=== PATIENT | male | born 1970 | race Caucasian/White ===

== ENCOUNTER 2017-02-12 10:54 | Emergency (ER) | payer MEDICAID ==
--- NOTE | 2017-02-12 11:46 | ED Physician Documentation ---
History of Present Illness - Stated complaint Stated Complaint: FOOT PX - Chief complaint Chief Complaint: General - History obtained from History obtained from: Patient - History of Present Illness Timing: How many days ago (4) - Additonal information Additional information: 47-year-old male with a history of renal cell carcinoma and gout has developed swelling and pain in his left foot. He has severe exquisite pain consistent with the gout as well as some swelling. He last had an episode of gout about a year ago and it was much less painful than this. He has previously been on indomethacin and this medication helped. Review of Systems Constitutional: denies: Fever Respiratory: denies: Cough GI: denies: Vomiting Skin: denies: Rash Musculoskeletal: reports: Extremity pain, Joint pain, Joint swelling, Pain with weight bearing. denies: Neck pain, Back pain Neurologic: denies: Generalized weakness, Focal weakness, Numbness PD PAST MEDICAL HISTORY - Past Medical History Past Medical History: Yes Cardiovascular: None Respiratory: None Endocrine/Autoimmune: None GI: None : Other HEENT: None Psych: Anxiety, Bipolar disorder Musculoskeletal: None Derm: None Other Past Medical History: Pt has hx of kidney CA - Past Surgical History Past Surgical History: Yes HEENT: Tonsil/Adenoidectomy - Present Medications Home Medications: Ambulatory Orders Medication Instructions Recorded Confirmed HYDROcod/ACETAM 5/325 [[place]verse 5/325] 1 - 2 ea PO Q6H PRN #15 tablet 02/12/17 Indomethacin 25 - 50 mg PO Q6HR PRN #20 capsule 02/12/17 - Allergies Allergies/Adverse Reactions: Allergies Allergy/AdvReac Type Severity Reaction Status Date / Time amoxicillin Allergy Rash Verified 02/12/17 11:07 Penicillins Allergy Rash Verified 02/12/17 11:07 sulfamethoxazole Allergy Edema Verified 02/12/17 11:07 [From Bactrim] trimethoprim [From Bactrim] Allergy Edema Verified 02/12/17 11:07 - Social History Does the pt smoke?: Yes Smoking Status: Current every day smoker Does the pt drink ETOH?: No Does the pt have substance abuse?: No - POLST Patient has POLST: No PD ED PE NORMAL - Vitals Vital signs reviewed: Yes (Hypertension) - General General: No acute distress, Well developed/nourished - HEENT HEENT: Atraumatic, PERRL, EOMI - Respiratory Respiratory: No respiratory distress - Derm Derm: Normal color, Warm and dry, No rash - Extremities Extremities: No deformity, Other (There is swelling to the ankle joint with exquisite tenderness. There is no overlying erythema there is pain to flexion extension of the great toe without swelling of the great toe. There is a palpable effusion to the ankle.) - Neuro Neuro: Alert and oriented X 3, No motor deficit, No sensory deficit, Normal speech - Psych Psych: Normal mood, Normal affect Results - Vitals Vitals: Vital Signs - 24 hr 02/12/17 11:01 Temperature 37.0 C Heart Rate 89 Respiratory 17 Rate Blood Pressure 142/95 H O2 Saturation 100 Oxygen O2 Source Room air PD MEDICAL DECISION MAKING - ED course Complexity details: considered differential, d/w patient ED course: 47-year-old male new to our facility with a history of gout presents with typical symptoms of gout. He has had symptoms for about 4 days and he was unable to sleep last night. He has swelling in the foot without erythema and exquisite tenderness. Here in the emergency department he is treated with dexamethasone 10 mg orally and Toradol [address] will place him on some indomethacin and Vicodin. Departure - Departure Disposition: Home, Self Care Clinical Impression: Gout attack Qualifiers: Gout site: ankle Gout etiology: unspecified cause Laterality: left Qualified Code(s): M10.9 - Gout, unspecified Condition: Stable Instructions: ED Arthritis Gout Follow-Up: [facility] [Provider Group] Prescriptions: Indomethacin 25 - 50 mg PO Q6HR PRN #20 capsule PRN Reason: Pain HYDROcod/ACETAM 5/325 [Converse 5/325] 1 - 2 ea PO Q6H PRN #15 tablet PRN Reason: Pain Comments: Today in the Emergency Department your blood pressure was elevated. This can happen from the stress of the visit itself, from a current illness or circumstance or from uncontrolled hypertension. If you take blood pressure medications take your usual mediations, have your blood pressure re-checked in an appropriate setting and follow up any elevation with your primary care doctor.
[2017-02-12] MEDS ORDERED: KETOROLAC 60 MG/2 ML VIAL ONE (11:54)
[2017-02-12] MEDS ORDERED: DEXAMETHASONE 10 MG/ML VIAL ONE (11:54)
[2017-02-12] MEDS: KETOROLAC 60 MG/2 ML VIAL IM STA (11:56)
[2017-02-12] MEDS: DEXAMETHASONE 10 MG/ML VIAL PO STA (11:56)
[2017-02-12 12:12] VITALS: BP 138/88
== END 2017-02-12 12:10 | disposition home or self-care (01) ==
LOC: ED 10:54
DX: M10.9 Gout, unspecified (principal); R03.0 Elevated blood-pressure reading, without diagnosis of hypertension; F17.200 Nicotine dependence, unspecified, uncomplicated; Z85.53 Personal history of malignant neoplasm of renal pelvis
CPT/HCPCS: 96372; 99283

== ENCOUNTER 2017-03-03 18:36 | Emergency (ER) | payer MEDICAID ==
[2017-03-03 19:02] LABS: BASOPHILS # (AUTO) 0.2 10^3/uL (0.0-0.1); EOSINOPHILS # (AUTO) 0.4 10^3/uL (0.0-0.7); EOSINOPHILS % (AUTO) 2.7 %; HCT - HEMATOCRIT 39.4 % (42.0-52.0); HGB - HEMOGLOBIN 13.7 g/dL (14.0-18.0); LYMPHOCYTES # (AUTO) 4.3 10^3/uL (1.5-3.5); MEAN CORPUSCULAR HEMOGLOBIN 32.5 pg (27.0-31.0); MEAN CORPUSCULAR HGB CONC 34.7 g/dL (32.0-36.0); MEAN CORPUSCULAR VOLUME 93.5 fL (80.0-94.0); MEAN PLATELET VOLUME 8.7 fL (7.4-11.4); MONOCYTES # (AUTO) 1.2 10^3/uL (0.0-1.0); MONOCYTES % (AUTO) 7.5 %; NEUTROPHILS # (AUTO) 10.3 10^3/uL (1.5-6.6); NEUTROPHILS % (AUTO) 62.8 %; RED BLOOD COUNT 4.21 10^6/uL (4.70-6.10); RED CELL DISTRIBUTION WIDTH 12.9 % (12.0-15.0); UNCORRECTED WHITE BLOOD COUNT 16.4 x10^3/uL; WHITE BLOOD COUNT 16.4 x10^3/uL (4.8-10.8)
[2017-03-03 19:11] LABS: BILIRUBIN,URINE NEGATIVE (NEGATIVE)
[2017-03-03 19:12] LABS: UA CHARGE (STRIP ONLY) YES; UR CULTURE IF IND NOT INDICATED
[2017-03-03 19:14] LABS: ALBUMIN/GLOBULIN RATIO 1.5 (1.0-2.2); BILIRUBIN,TOTAL 0.5 mg/dL (0.2-1.0); CREATININE 1.1 mg/dL (0.6-1.2); POTASSIUM 3.9 mmol/L (3.5-5.0); TOTAL PROTEIN 6.9 g/dL (6.7-8.2)
--- NOTE | 2017-03-03 19:44 | ED Physician Documentation ---
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) Similar symptoms before: Diagnosis (had renal cell carcinoma in the past.) Recently seen: Not recently seen - Additional information Additional information: recently moved here from [place] Review of Systems Ten Systems: 10 systems reviewed and negative Constitutional: denies: Fever, Chills Ears: denies: Ear pain Nose: denies: Rhinorrhea / runny nose, Congestion Cardiac: denies: Chest pain / pressure Respiratory: denies: Cough GI: denies: Nausea, Vomiting, Diarrhea : denies: Dysuria, Frequency, Hesitancy, Incontinent, Hematuria, Discharge, Testicular pain, Testicular mass Skin: denies: Rash Musculoskeletal: denies: Neck pain, Back pain PD PAST MEDICAL HISTORY - Past Medical History Past Medical History: Yes Cardiovascular: None Respiratory: None Endocrine/Autoimmune: None GI: None : Other HEENT: None Psych: Anxiety, Bipolar disorder Musculoskeletal: None, Gout Derm: None Other Past Medical History: renal cancer - Past Surgical History Past Surgical History: Yes HEENT: Tonsil/Adenoidectomy - Present Medications Home Medications: Ambulatory Orders Medication Instructions Recorded Confirmed Hydrocodone/Acetaminophen 1 - 2 each PO Q6H PRN #14 tablet 03/03/17 [Hydrocodon-Acetaminophen 5-325] Ibuprofen [Motrin] 800 mg PO Q8H PRN #30 tablet 03/03/17 - Allergies Allergies/Adverse Reactions: Allergies Allergy/AdvReac Type Severity Reaction Status Date / Time amoxicillin Allergy Rash Verified 03/03/17 19:15 Penicillins Allergy Rash Verified 03/03/17 19:15 sulfamethoxazole Allergy Edema Verified 03/03/17 19:15 [From Bactrim] trimethoprim [From Bactrim] Allergy Edema Verified 03/03/17 19:15 - Social History Does the pt smoke?: Yes Smoking Status: Current every day smoker Does the pt drink ETOH?: No Does the pt have substance abuse?: No - Immunizations Immunizations are current?: Yes - POLST Patient has POLST: No PD ED PE NORMAL - Vitals Vital signs reviewed: Yes - General General: Alert and oriented X 3, No acute distress, Well developed/nourished - HEENT HEENT: PERRL - Neck Neck: Supple, no meningeal sign - Cardiac Cardiac: RRR, Strong equal pulses - Respiratory Respiratory: No respiratory distress, Clear bilaterally - Abdomen Abdomen: Soft, Non tender, Non distended - Back Back: No spinal TTP, Other (TTP R low flank. 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, No motor deficit, No sensory deficit - Psych Psych: Normal mood, Normal affect Results - Vitals Vitals: Vital Signs - 24 hr 03/03/17 03/03/17 03/03/17 18:38 21:00 21:23 Temperature 36.2 C L Heart Rate 107 H 86 71 Respiratory 18 16 16 Rate Blood Pressure 123/76 117/77 128/86 H O2 Saturation 98 98 97 Oxygen O2 Source Room air - Labs Labs: Laboratory Tests 03/03/17 03/03/17 03/03/17 18:50 18:50 18:50 WBC 16.4 H RBC 4.21 L Hgb 13.7 L Hct 39.4 L MCV 93.5 MCH 32.5 H MCHC 34.7 RDW 12.9 Plt Count 228 MPV 8.7 Neut # 10.3 H Lymph # 4.3 H [place] # 1.2 H Eos # 0.4 Baso # 0.2 H Absolute Nucleated RBC 0.00 Nucleated RBCs 0.0 Sodium 137 Potassium 3.9 Chloride 102 Carbon Dioxide 28 Anion Gap 7.0 BUN 20 Creatinine 1.1 Estimated GFR (MDRD) 72 L Glucose 109 H Calcium 9.0 Total Bilirubin 0.5 AST 19 ALT 19 Alkaline Phosphatase 62 Total Protein 6.9 Albumin 4.1 Globulin 2.8 Albumin/Globulin Ratio 1.5 Lipase 25 Urine Color YELLOW Urine Clarity CLEAR Urine pH 6.0 Ur Specific [place] 1.025 Urine Protein NEGATIVE Urine Glucose (UA) NEGATIVE Urine Ketones NEGATIVE Urine Occult Blood NEGATIVE Urine Nitrite NEGATIVE Urine Bilirubin NEGATIVE Urine Urobilinogen 0.2 (NORMAL) Ur Leukocyte Esterase NEGATIVE Ur Microscopic Review NOT INDICATED Urine Culture Comments NOT INDICATED - Rads (name of study) CT abdomen pelvis Radiology: Prelim report reviewed, EMP read contemporaneously, See rad report ( No acute abnormalities) PD MEDICAL DECISION MAKING - ED course Complexity details: reviewed results, re-evaluated patient, considered differential (no cauda equina, no spinal epidural abscess, no fracture, no aortic dissection or evidence of aneursym rupture), d/w patient ED course: Patient is a 47-year-old gentleman who presents to the emergency department with right low back pain, does have a history of renal cell carcinoma on the left and was concerned about possible recurrence of the cancer versus kidney stone. Imaging is negative. Does have a leukocytosis on CBC, but patient states that this is normal for him and within his normal range. Patient is very well-appearing, nontoxic. Afebrile. Pain greatly improved in the emergency department with pain medication. Ambulating well. Will prescribe a small amount of pain medication for home and follow-up with his doctor. Patient counseled regarding signs and symptoms for which I believe and urgent re -evaluation would be necessary. Patient with good understanding of and agreement to plan and is comfortable going home at this time This document was made in part using voice recognition software. While efforts are made to proofread this document, sound alike and grammatical errors may occur. Departure - Departure Disposition: 01 Home, Self Care Clinical Impression: Back pain Qualifiers: Back pain location: low back pain Chronicity: acute Back pain laterality: right Sciatica presence: without sciatica Qualified Code(s): M54.5 - Low back pain Condition: Good Instructions: ED Acute Pain UKO, ED Neck Back Pain General Follow-Up: [facility] [Provider Group] [facility] [Provider Group] Prescriptions: Hydrocodone/Acetaminophen [Hydrocodon-Acetaminophen 5-325] 1 - 2 each PO Q6H PRN #14 tablet PRN Reason: pain Ibuprofen [Motrin] 800 mg PO Q8H PRN #30 tablet PRN Reason: PAIN &/OR FEVER Comments: Your labs and CT scan are normal tonight other than her elevated white blood cell count, which is chronic for you. Return if you worsen. This should improve over the next few days. Discharge Date/Time: 03/03/17 21:25
[2017-03-03] MEDS ORDERED: IOPAMIDOL-300 100 ML VIAL IVP ONE (20:33)
--- NOTE | 2017-03-03 20:43 | CT Preliminary Report ---
Exam: CT Abdomen/Pelvis W/ IMPRESSION: 1. Negative examination. No acute CT finding to explain the clinical symptoms. [facility] SITE ID: [id number]
[2017-03-03] MEDS ORDERED: HYDROmorphone 1 MG/ML SYRINGE IVP STA (20:45)
--- NOTE | 2017-03-03 20:46 | CT Report ---
EXAM: CT ABDOMEN AND PELVIS EXAM DATE: 03/03/2017 08:33 PM. CLINICAL HISTORY: R low back/flank pain. COMPARISONS: None. TECHNIQUE: Routine helical CT imaging was performed through the abdomen and pelvis. IV contrast: 100 cc Isovue-300 IV. Enteric contrast: No. Reconstructions: Coronal and sagittal. In accordance with CT protocol optimization, one or more of the following dose reduction techniques w ere utilized for this exam: automated exposure control, adjustment of mA and/or KV based on patient s ize, or use of iterative reconstructive technique. FINDINGS: Lung Bases: Unremarkable. Liver: Normal. No masses. Gallbladder/Bile Ducts: The gallbladder is contracted. Spleen: Normal. Pancreas: Normal. Adrenal Glands: Normal. Kidneys: There is a cyst in the left kidney. Kidneys otherwise unremarkable. No kidney stone or hydro nephrosis. Peritoneal Cavity/Bowel: Normal. No free fluid, free air or adenopathy. No masses or acute inflammato ry process. The appendix is well visualized and normal. Pelvic Organs: Normal. The bladder and visualized pelvic organs are within normal limits. Vasculature: No aneurysms or other significant abnormality. Bones: No significant abnormality. Other: None. IMPRESSION: 1. Negative examination. No acute CT finding to explain the clinical symptoms. [facility] Referring Provider Line: [phone] SITE ID: [id number]
[2017-03-03] MEDS ORDERED: HYDROmorphone 1 MG/ML SYRINGE ONE (20:56)
[2017-03-03 21:25] VITALS: BP 128/86
== END 2017-03-03 21:25 | disposition home or self-care (01) ==
LOC: ED 18:36
DX: M54.5 Low back pain (principal); D72.829 Elevated white blood cell count, unspecified; Z85.528 Personal history of other malignant neoplasm of kidney; F17.200 Nicotine dependence, unspecified, uncomplicated
CPT/HCPCS: 36415; 74177; 80053; 81003; 83690; 85025; 96374; 99283; 99284; J1170; Q9967; 81001; 87086

== ENCOUNTER 2017-03-24 15:50 | Outpatient (CLI) | payer MEDICAID | END 2017-03-24 15:51 | disposition critical access hospital (66) | LOC: EMS 15:50 | PROVIDERS: ATTEND Surgery | DX: M54.5 Low back pain (principal); V03.10XA Pedestrian on foot injured in collision with car, pick-up truck or van in traffic accident, initial encounter; Y92.414 Local residential or business street as the place of occurrence of the external cause | CPT/HCPCS: A0425; A0429 ==

== ENCOUNTER 2017-03-24 16:11 | Emergency (ER) | payer MEDICAID ==
[2017-03-24] MEDS ORDERED: KETOROLAC 60 MG/2 ML VIAL IVP STA (17:40)
--- NOTE | 2017-03-24 17:40 | XRAY Preliminary Report ---
Exam: XR Lumbar Spine 2 View IMPRESSION: No lumbar spine fracture or malalignment. Mild L3-L4 disk and L5-S1 facet joint related t o degenerative changes. [facility] SITE ID: [id number]
--- NOTE | 2017-03-24 17:41 | XRAY Preliminary Report ---
Exam: XR Knee 4 View RT IMPRESSION: Normal knee radiography. [facility] SITE ID: [id number]
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
[2017-03-24] MEDS ORDERED: KETOROLAC 60 MG/2 ML VIAL ONE (17:50)
[2017-03-24] MEDS ORDERED: SODIUM CHLORIDE FLUSH 0.9% 10 ML SYRINGE IVP ONE ×2 (17:53→18:39)
[2017-03-24] MEDS ORDERED: IOPAMIDOL-300 100 ML VIAL ONE (17:56)
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
[2017-03-24] MEDS ORDERED: HYDROmorphone 1 MG/ML CARPUJECT IVP STA (18:26)
[2017-03-24] MEDS ORDERED: IOPAMIDOL-300 100 ML VIAL IVP ONE (18:29)
[2017-03-24] MEDS ORDERED: HYDROmorphone 1 MG/ML CARPUJECT ONE (18:39)
--- NOTE | 2017-03-24 18:57 | CT Preliminary Report ---
Exam: CT Chest W/ IMPRESSION: No evidence of acute traumatic injury to the chest. [facility] SITE ID: [id number]
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
--- NOTE | 2017-03-24 19:01 | CT Preliminary Report ---
Exam: CT Abdomen/Pelvis W/ IMPRESSION: No evidence of acute traumatic injury to the abdomen or pelvis. [facility] SITE ID: [id number]
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
[2017-03-24 19:46] VITALS: BP 149/82
== END 2017-03-24 20:05 | disposition home or self-care (01) ==
LOC: EDUNIT# → ED 16:11
DX: S80.211A Abrasion, right knee, initial encounter (principal); S39.012A Strain of muscle, fascia and tendon of lower back, initial encounter; S20.20XA Contusion of thorax, unspecified, initial encounter; V03.10XA Pedestrian on foot injured in collision with car, pick-up truck or van in traffic accident, initial encounter; F17.200 Nicotine dependence, unspecified, uncomplicated
CPT/HCPCS: 71260; 72100; 73564; 74177; 96374; 96375; 99283; 99284; J1170; Q9967

== ENCOUNTER 2017-03-30 14:16 | Outpatient (CLI) | payer MEDICAID | END 2017-03-30 14:17 | disposition critical access hospital (66) | LOC: EMS 14:16 | PROVIDERS: ATTEND Surgery | DX: R60.0 Localized edema (principal) | CPT/HCPCS: A0425; A0429 ==

== ENCOUNTER 2017-03-30 14:39 | Emergency (ER) | payer MEDICAID ==
--- NOTE | 2017-03-30 14:48 | ED Physician Documentation ---
PD HPI HEENT - Stated complaint Stated Complaint: FACE SWELLING - Chief complaint Chief Complaint: Heent - History obtained from History obtained from: Patient, EMS - History of Present Illness Timing - onset: How many days ago (3) Timing - duration: Days (3) Timing - details: Abrupt onset, Still present Location: Nose (left nostril lump and tenderness that has gotten bigger and today with facial swelling left side of nose and lower left eyelid.) Worsens: Other (palpating). No: Swalllowing Associated symptoms: Fever (subjective today), Facial swelling. No: Congestion , Rhinorrhea, Swollen nodes, Headache, Cough Similar symptoms before: Has not had sx before Review of Systems Constitutional: reports: Fever. denies: Chills, Myalgias Nose: reports: Other (nostril swelling/left side nose.). denies: Rhinorrhea / runny nose, Congestion, Epistaxis, Sinus pressure / pain Throat: denies: Sore throat Respiratory: denies: Cough GI: denies: Nausea, Vomiting, Diarrhea Neurologic: denies: Focal weakness, Numbness PD PAST MEDICAL HISTORY - Past Medical History Cardiovascular: None Respiratory: None Endocrine/Autoimmune: None GI: None : Other HEENT: None Psych: Anxiety, Bipolar disorder Musculoskeletal: None, Gout Derm: None - Past Surgical History Past Surgical History: Yes HEENT: Tonsil/Adenoidectomy - Present Medications Home Medications: Ambulatory Orders Medication Instructions Recorded Confirmed Tramadol HCl 50 mg PO Q6H PRN #20 tablet 03/24/17 03/30/17 Cephalexin [Keflex] 500 mg PO TID #21 capsule 03/30/17 Doxycycline Monohydrate 100 mg PO BID #14 tablet 03/30/17 Mupirocin 1 applic TP TID #15 oint...g. 03/30/17 Oxycodone HCl/Acetaminophen 1 each PO Q6H PRN #20 tablet 03/30/17 [Percocet 5-325 mg Tablet] - Allergies Allergies/Adverse Reactions: Allergies Allergy/AdvReac Type Severity Reaction Status Date / Time amoxicillin Allergy Rash Verified 03/30/17 14:46 Penicillins Allergy Rash Verified 03/30/17 14:46 sulfamethoxazole Allergy Edema Verified 03/30/17 14:46 [From Bactrim] trimethoprim [From Bactrim] Allergy Edema Verified 03/30/17 14:46 - Social History Does the pt smoke?: Yes Smoking Status: Current every day smoker Does the pt drink ETOH?: No Does the pt have substance abuse?: No - Immunizations Immunizations are current?: Yes - POLST Patient has POLST: No PD ED PE NORMAL - Vitals Vital signs reviewed: Yes - General General: Alert and oriented X 3, No acute distress, Well developed/nourished - HEENT HEENT: Ears normal, Pharynx benign, Other (left side of nose with redness and swelling, firm area noted of tissue. Left side of nose and left lower eyelid with soft swelling without induration nor fluctuance. ) - Neck Neck: Supple, no meningeal sign, No adenopathy - Cardiac Cardiac: RRR, No murmur - Respiratory Respiratory: Clear bilaterally - Derm Derm: Normal color, Warm and dry - Neuro Neuro: Alert and oriented X 3, conference organizer 2-12 intact, No motor deficit, No sensory deficit, Normal speech Results - Vitals Vitals: Vital Signs - 24 hr 03/30/17 03/30/17 14:42 16:12 Temperature 36.3 C L 36.5 C Heart Rate 79 63 Respiratory 15 18 Rate Blood Pressure 172/109 H 156/86 H O2 Saturation 100 100 Oxygen O2 Source Room air - Labs Labs: Microbiology 03/30/17 15:30 MRSA (PCR) - Final Nasal Laboratory Tests 03/30/17 03/30/17 03/30/17 15:20 15:20 15:20 WBC 12.8 H RBC 4.68 L Hgb 15.1 Hct 43.8 MCV 93.6 MCH 32.3 H MCHC 34.5 RDW 13.4 Plt Count 210 MPV 9.3 Neut # 8.9 H Lymph # 2.6 [place] # 0.8 Eos # 0.4 Baso # 0.1 Absolute Nucleated RBC 0.00 Nucleated RBC % 0.0 Sodium 139 Potassium 4.4 Chloride 103 Carbon Dioxide 26 Anion Gap 10.0 BUN 10 Creatinine 1.0 Estimated GFR (MDRD) 80 L Glucose 107 H Lactic Acid 1.8 Calcium 9.2 Total Bilirubin 0.3 AST 20 ALT 11 Alkaline Phosphatase 71 Total Protein 7.2 Albumin 4.1 Globulin 3.1 Albumin/Globulin Ratio 1.3 Lipase 30 - Rads (name of study) facial CT Radiology: Prelim report reviewed (small fluid collection 7x10 mm left nostril. Soft tissue swelling left face. Sinuses and bones okay. No orbital fluid/ swelling. ) PD MEDICAL DECISION MAKING - ED course Complexity details: reviewed results, considered differential (nose infection vs abscess and the CT showed 1 cm area of abscess. I did needle it with 18G needle intranasally and got some pus to drain along with some brief bleeding. He does not look septic. The CT showed nose and facial infection, without deeper structures/sinus extension. ), d/w patient Departure - Departure Disposition: 01 Home, Self Care Clinical Impression: Abscess of nose, Facial cellulitis Condition: Stable Record reviewed to determine appropriate education?: Yes Instructions: ED Abscess IandD Prescriptions: Cephalexin [Keflex] 500 mg PO TID #21 capsule Doxycycline Monohydrate 100 mg PO BID #14 tablet Mupirocin 1 applic TP TID #15 oint...g. Oxycodone HCl/Acetaminophen [Percocet 5-325 mg Tablet] 1 each PO Q6H PRN #20 tablet PRN Reason: Pain Comments: Using mupirocin antibiotic ointment in the nostrils 3 or 4 times a day. Afrin nasal spray can be used to decrease the swelling in the nasal passage. For the infection use doxycycline and cephalexin for a week as directed. Tylenol or ibuprofen if needed for pains and add oxycodone if needed for worse pain. Recheck if not improved in the next 2-3 days either primary care or here in the ER. Return sooner if worsening. Discharge Date/Time: 03/30/17 17:52
[2017-03-30] MEDS ORDERED: oxyCOD/ACETAMIN 5 MG/325 MG TABLET PO STA (14:58)
[2017-03-30] MEDS ORDERED: DOXYCYCLINE 100 MG TABLET PO STA ×2 (14:59→17:39)
[2017-03-30] MEDS ORDERED: KETOROLAC 60 MG/2 ML VIAL IVP STA (15:02)
[2017-03-30] MEDS ORDERED: IOPAMIDOL-300 100 ML VIAL ONE (15:08)
[2017-03-30] MEDS ORDERED: DOXYCYCLINE 100 MG TABLET PO ONE (15:08)
[2017-03-30] MEDS ORDERED: IOPAMIDOL-300 100 ML VIAL IVP ONE ×2 (15:08→16:04)
[2017-03-30] MEDS ORDERED: oxyCOD/ACETAMIN 5 MG/325 MG TABLET PO ONE (15:08)
[2017-03-30] MEDS ORDERED: SODIUM CHLORIDE FLUSH 0.9% 10 ML SYRINGE IVP ONE ×2 (15:09→16:14)
[2017-03-30 15:24] LABS: BASOPHILS # (AUTO) 0.1 10^3/uL (0.0-0.1); BASOPHILS % (AUTO) 0.7 %; EOSINOPHILS # (AUTO) 0.4 10^3/uL (0.0-0.7); EOSINOPHILS % (AUTO) 2.9 %; HCT - HEMATOCRIT 43.8 % (42.0-52.0); HGB - HEMOGLOBIN 15.1 g/dL (14.0-18.0); LYMPHOCYTES # (AUTO) 2.6 10^3/uL (1.5-3.5); LYMPHOCYTES % (AUTO) 20.5 %; MEAN CORPUSCULAR HEMOGLOBIN 32.3 pg (27.0-31.0); MEAN CORPUSCULAR HGB CONC 34.5 g/dL (32.0-36.0); MEAN CORPUSCULAR VOLUME 93.6 fL (80.0-94.0); MEAN PLATELET VOLUME 9.3 fL (7.4-11.4); MONOCYTES # (AUTO) 0.8 10^3/uL (0.0-1.0); MONOCYTES % (AUTO) 6.4 %; NEUTROPHILS # (AUTO) 8.9 10^3/uL (1.5-6.6); NEUTROPHILS % (AUTO) 69.5 %; RED BLOOD COUNT 4.68 10^6/uL (4.70-6.10); RED CELL DISTRIBUTION WIDTH 13.4 % (12.0-15.0); UNCORRECTED WHITE BLOOD COUNT 12.8 x10^3/uL; WHITE BLOOD COUNT 12.8 x10^3/uL (4.8-10.8)
[2017-03-30] MEDS ORDERED: KETOROLAC 30 MG/ML VIAL ONE (15:27)
[2017-03-30 15:46] LABS: ALBUMIN/GLOBULIN RATIO 1.3 (1.0-2.2); BILIRUBIN,TOTAL 0.3 mg/dL (0.2-1.0); CALCIUM 9.2 mg/dL (8.5-10.3); POTASSIUM 4.4 mmol/L (3.5-5.0); TOTAL PROTEIN 7.2 g/dL (6.7-8.2)
[2017-03-30] MEDS ORDERED: HYDROmorphone 1 MG/ML CARPUJECT IVP STA (16:07)
[2017-03-30 16:12] VITALS: BP 156/86
[2017-03-30] MEDS ORDERED: HYDROmorphone 1 MG/ML SYRINGE ONE (16:14)
--- NOTE | 2017-03-30 16:39 | CT Preliminary Report ---
Exam: CT Facial Bones W/ IMPRESSION: 1. There is a rim-enhancing fluid collection seen along the anterior left nose measuring 7 x 7 x 10 m m (CC by TRV by AP). There is moderate surrounding inflammatory stranding seen extending superiorly a long the nasal bridge and inferiorly to the left nasolabial fold. 2. Extensive dental disease as detailed above. [facility] SITE ID: [id number]
--- NOTE | 2017-03-30 16:42 | CT Report ---
EXAM: CT MAXILLOFACIAL WITH CONTRAST EXAM DATE: 03/30/2017 04:10 PM. CLINICAL HISTORY: Left nasal swelling COMPARISONS: None. TECHNIQUE: Thin-section axial images were acquired of the face after administration of intravenous co ntrast. IV contrast: Iodinated. Post-processing: Coronal and sagittal reformats. Other: None. In accordance with CT protocol optimization, one or more of the following dose reduction techniques w ere utilized for this exam: automated exposure control, adjustment of mA and/or KV based on patient s ize, or use of iterative reconstructive technique. FINDINGS: Nose: There is a rim-enhancing fluid collection seen along the anterior left nose measuring 7 x 7 x 1 0 mm (CC by TRV by AP). There is moderate overlying soft tissue thickening and stranding seen along t he nose extending superiorly to the nasal bridge and extending inferiorly to the nasolabial fold. No additional rim-enhancing fluid collection seen. There is rightward deviation of bony nasal septum. No definite nasal polyps or masses seen. A moderat e-sized left fredy bullosa is seen. Dental: Numerous dental caries are seen. Numerous periapical lucencies with cortical breakthrough are seen. No definite overlying soft tissue thickening rim-enhancing fluid collection seen overlying the cortical breakthrough. There is amorphous hyperdensity seen within the left posterior maxillary ridg e that may represent prior to procedure. Bones: No fracture or bone lesion. Temporomandibular Joints: The temporomandibular joints are symmetric and normally located. Sinuses: Small bilateral maxillary mucosal retention cysts versus polyps. Mild mucosal thickening in the ethmoid air cells. Mastoid air cells and middle ear cavities are clear. Orbits: The orbits appear normal. Glands: The parotid and submandibular glands are unremarkable. Pharynx: Normal. Other: The visualized vasculature appears normal.. IMPRESSION: 1. There is a rim-enhancing fluid collection seen along the anterior left nose measuring 7 x 7 x 10 m m (CC by TRV by AP). There is moderate surrounding inflammatory stranding seen extending superiorly a long the nasal bridge and inferiorly to the left nasolabial fold. 2. Extensive dental disease as detailed above. [facility] Referring Provider Line: [phone] SITE ID: [id number]
[2017-03-30] MEDS ORDERED: OXYMETAZOLINE NASAL SPRAY NAS STA (17:37)
[2017-03-30] MEDS ORDERED: oxyCODONE/ACET 5/325 Prepack 4 PO STA (17:38)
[2017-03-30] MEDS ORDERED: cephALEXin 250 MG CAPSULE PO STA (17:40)
[2017-03-30] MEDS ORDERED: OXYMETAZOLINE NASAL SPRAY NAS ONE (17:51)
[2017-03-30] MEDS ORDERED: oxyCODONE/ACET 5/325 Prepack 4 PO ONE (17:51)
[2017-03-30] MEDS ORDERED: cephALEXin 250 MG CAPSULE PO ONE (17:51)
== END 2017-03-30 17:52 | disposition home or self-care (01) ==
LOC: EDUNIT# → ED 14:39
DX: J34.0 Abscess, furuncle and carbuncle of nose (principal); L03.211 Cellulitis of face; F17.200 Nicotine dependence, unspecified, uncomplicated
CPT/HCPCS: 10160; 36415; 70487; 80053; 83605; 83690; 85025; 87640; 96374; 96375; 99283; 99284; A9270; J1170; Q9967; 87081

== ENCOUNTER 2017-04-01 17:40 | Outpatient (CLI) | payer MEDICAID | END 2017-04-01 17:41 | disposition critical access hospital (66) | LOC: EMS 17:40 | PROVIDERS: ATTEND Surgery | DX: R11.2 Nausea with vomiting, unspecified (principal) | CPT/HCPCS: A0425; A0427 ==

== ENCOUNTER 2017-04-01 18:03 | Inpatient (IN) | payer MEDICAID ==
[2017-04-01] MEDS ORDERED: HYDROmorphone 1 MG/ML CARPUJECT IVP STA ×3 (18:55→20:55)
[2017-04-01] MEDS ORDERED: SODIUM CHLORIDE 0.9% 1,000 ML IV ONE (18:55)
--- NOTE | 2017-04-01 18:57 | ED Physician Documentation ---
History of Present Illness - Stated complaint Stated Complaint: N/V - Chief complaint Chief Complaint: General - History obtained from History obtained from: Patient - History of Present Illness Timing: Other (He was seen here couple of days ago with a nasal abscess, placed on doxycycline and a MRSA PCR done was positive. He has worsened with more facial swelling and some subjective fevers today.) Review of Systems Ten Systems: 10 systems reviewed and negative Constitutional: reports: Fever, Chills, Myalgias, Fatigue Nose: denies: Rhinorrhea / runny nose, Congestion Throat: denies: Sore throat Cardiac: denies: Chest pain / pressure, Palpitations Respiratory: denies: Dyspnea PD PAST MEDICAL HISTORY - Past Medical History Cardiovascular: None Respiratory: None Endocrine/Autoimmune: None GI: None : Other HEENT: None Psych: Anxiety, Bipolar disorder Musculoskeletal: None, Gout Derm: None - Past Surgical History Past Surgical History: Yes HEENT: Tonsil/Adenoidectomy - Present Medications Home Medications: Ambulatory Orders Medication Instructions Recorded Confirmed Tramadol HCl 50 mg PO Q6H PRN #20 tablet 03/24/17 03/30/17 Cephalexin [Keflex] 500 mg PO TID #21 capsule 03/30/17 Doxycycline Monohydrate 100 mg PO BID #14 tablet 03/30/17 Mupirocin 1 applic TP TID #15 oint...g. 03/30/17 Oxycodone HCl/Acetaminophen 1 each PO Q6H PRN #20 tablet 03/30/17 [Percocet 5-325 mg Tablet] - Allergies Allergies/Adverse Reactions: Allergies Allergy/AdvReac Type Severity Reaction Status Date / Time amoxicillin Allergy Rash Verified 03/30/17 14:46 Penicillins Allergy Rash Verified 03/30/17 14:46 sulfamethoxazole Allergy Edema Verified 03/30/17 14:46 [From Bactrim] trimethoprim [From Bactrim] Allergy Edema Verified 03/30/17 14:46 - Social History Does the pt smoke?: Yes Smoking Status: Current every day smoker Does the pt drink ETOH?: No Does the pt have substance abuse?: No - Family History Family history: reports: Non contributory - Immunizations Immunizations are current?: Yes - POLST Patient has POLST: No PD ED PE NORMAL - Vitals Vital signs reviewed: Yes (Afebrile) - General General: Alert and oriented X 3, No acute distress - HEENT HEENT: Other (Inside the left nares on the lateral side there is a large pointed abscess with overlying cellulitis and swelling of that side of the nose extending a little bit into the lower eyelid and cheek.) - Neck Neck: Supple, no meningeal sign, No bony TTP - Cardiac Cardiac: RRR, No murmur - Respiratory Respiratory: No respiratory distress, Clear bilaterally - Abdomen Abdomen: Normal bowel sounds, Soft, Non tender - Back Back: No CVA TTP - Extremities Extremities: No edema, No calf tenderness / cord - Neuro Neuro: Alert and oriented X 3, Normal speech - Psych Psych: Normal mood, Normal affect Results - Vitals Vitals: Vital Signs - 24 hr 04/01/17 04/01/17 04/01/17 18:06 19:58 20:00 Temperature 36.1 C L Heart Rate 74 94 85 Respiratory 18 17 18 Rate Blood Pressure 132/75 H 144/94 H O2 Saturation 99 98 04/01/17 04/01/17 04/01/17 20:04 20:10 20:26 Temperature Heart Rate 82 73 82 Respiratory 18 17 18 Rate Blood Pressure 144/98 H 144/91 H 169/109 H O2 Saturation 94 95 99 Oxygen O2 Source Room air - Labs Labs: Microbiology 04/01/17 20:10 Wound Culture - Preliminary Abscess Laboratory Tests 04/01/17 04/01/17 20:11 20:11 WBC 20.3 H RBC 4.30 L Hgb 14.0 Hct 40.3 L MCV 93.7 MCH 32.6 H MCHC 34.8 RDW 12.9 Plt Count 223 MPV 8.6 Neut # 17.0 H Lymph # 2.1 [place] # 1.0 Eos # 0.1 Baso # 0.1 Absolute Nucleated RBC 0.02 Nucleated RBC % 0.1 Manual Slide Review Indicated WBC Morphology NORMAL APPEARANCE Platelet Estimate NORMAL (130-450,000) Platelet Morphology NORMAL APPEARANCE RBC Morph Micro Appear NORMAL APPEARANCE Sodium 139 Potassium 3.7 Chloride 103 Carbon Dioxide 25 Anion Gap 11.0 BUN 7 Creatinine 0.7 Estimated GFR (MDRD) 121 Glucose 106 H Calcium 8.9 Total Bilirubin 0.6 AST 12 ALT 10 Alkaline Phosphatase 62 Total Protein 7.2 Albumin 4.0 Globulin 3.2 Albumin/Globulin Ratio 1.3 Lipase 15 L Procedures - Abscess I&D (location) Left nares Preparation: Lidocaine 1% Incision: Incised with scalpel, Purulent drainage, Loculations broken, Packed (1 /4 inch packing), Culture obtained Other: Pt tolerated well, Dressing applied - Procedural sedation Sedation prep: Informed consent, AHA 1 - healthy, IV O2 monitor, ET CO2 monitor , RT present Sedation medications: propofol (divided doses totalling 150mg) Patient status during sedation: Responds to tactile, Maintained airway. No: Respiratory depression, Hypoxia, Needed resp assistance Sedation recovery: Recovered uneventfully PD MEDICAL DECISION MAKING - ED course ED course: 47-year-old gentleman with nasal MRSA abscess, needed repeat drainage and now has worsening cellulitis of the face and significant leukocytosis. Call to the hospitalist for admission at 8:22 PM. Placed on vancomycin. He did require sedation for the incision and drainage of the abscess which was otherwise uncomplicated. Departure - Departure Disposition: [facility] DC/Xfer Clinical Impression: Facial cellulitis, Abscess of nose Condition: Serious Discharge Date/Time: 04/01/17 21:34
[2017-04-01] MEDS ORDERED: PROPOFOL 200 MG/20 ML VIAL IVP STA ×2 (19:16→20:08)
[2017-04-01] MEDS ORDERED: BUFFERED LIDOCAINE 10 ML SYRINGE SUBQ STA (19:17)
[2017-04-01] MEDS ORDERED: HYDROmorphone 1 MG/ML SYRINGE ONE ×3 (19:44→21:03)
[2017-04-01] MEDS ORDERED: PROPOFOL 200 MG/20 ML VIAL IVP ONE (19:45)
[2017-04-01] MEDS ORDERED: BUFFERED LIDOCAINE 10 ML SYRINGE ONE (19:45)
[2017-04-01 20:18] LABS: BASOPHILS # (AUTO) 0.1 10^3/uL (0.0-0.1); BASOPHILS % (AUTO) 0.4 %; EOSINOPHILS # (AUTO) 0.1 10^3/uL (0.0-0.7); EOSINOPHILS % (AUTO) 0.5 %; HCT - HEMATOCRIT 40.3 % (42.0-52.0); LYMPHOCYTES # (AUTO) 2.1 10^3/uL (1.5-3.5); LYMPHOCYTES % (AUTO) 10.3 %; MEAN CORPUSCULAR HEMOGLOBIN 32.6 pg (27.0-31.0); MEAN CORPUSCULAR HGB CONC 34.8 g/dL (32.0-36.0); MEAN CORPUSCULAR VOLUME 93.7 fL (80.0-94.0); MEAN PLATELET VOLUME 8.6 fL (7.4-11.4); MONOCYTES % (AUTO) 5.1 %; NEUTROPHILS % (AUTO) 83.7 %; NUCLEATED RED BLOOD CELLS AUTO 0.1 /100WBC; RED CELL DISTRIBUTION WIDTH 12.9 % (12.0-15.0); UNCORRECTED WHITE BLOOD COUNT 20.3 x10^3/uL; WHITE BLOOD COUNT 20.3 x10^3/uL (4.8-10.8)
[2017-04-01] MEDS ORDERED: VANCOMYCIN INJ 2 GM in SODIUM CHLORIDE 0.9% 500 ML IV STA (20:21)
[2017-04-01 20:33] LABS: ALBUMIN/GLOBULIN RATIO 1.3 (1.0-2.2); BILIRUBIN,TOTAL 0.6 mg/dL (0.2-1.0); CALCIUM 8.9 mg/dL (8.5-10.3); CREATININE 0.7 mg/dL (0.6-1.2); POTASSIUM 3.7 mmol/L (3.5-5.0); TOTAL PROTEIN 7.2 g/dL (6.7-8.2)
[2017-04-01] MEDS ORDERED: VANCOMYCIN 1 GM VIAL ONE ×2 (20:36→20:48)
[2017-04-01] MEDS ORDERED: KETOROLAC 60 MG/2 ML VIAL IVP STA (20:46)
[2017-04-01] MEDS ORDERED: SODIUM CHLORIDE FLUSH 0.9% 10 ML SYRINGE IVP PRN (21:00)
[2017-04-01] MEDS ORDERED: TEMAZEPAM 15 MG CAPSULE PO PRN (21:00)
[2017-04-01] MEDS ORDERED: ACETAMINOPHEN 325 MG TABLET PO PRN (21:00)
[2017-04-01] MEDS ORDERED: HYDROmorphone 1 MG/ML SYRINGE IVP PRN (21:00)
[2017-04-01] MEDS ORDERED: PROCHLORPERAZINE 10 MG/2 ML VIAL IVP PRN (21:00)
[2017-04-01] MEDS ORDERED: KETOROLAC 30 MG/ML VIAL ONE (21:03)
[2017-04-01] MEDS ORDERED: oxyCOD/ACETAMIN 5 MG/325 MG TABLET PO PRN (21:04)
[2017-04-01] MEDS ORDERED: traMADol 50 MG TABLET PO PRN (21:04)
[2017-04-01 21:07] LABS: PLATELET ESTIMATE, MANUAL NORMAL (130-450,000) (NORMAL); PLATELET MORPHOLOGY NORMAL APPEARANCE (NORMAL); WBC MORPHOLOGY (MULTIPLE) NORMAL APPEARANCE (NORMAL)
[2017-04-01] MEDS ORDERED: DOXYCYCLINE INJ 100 MG in SODIUM CHLORIDE 0.9% MINIBAG 100 ML IV SCH (22:00)
[2017-04-01] MEDS: SODIUM CHLORIDE FLUSH 0.9% 10 ML SYRINGE IVP SCH (22:03)
[2017-04-01] MEDS ORDERED: NICOTINE 21 MG PATCH TOP SCH (23:00)
[2017-04-02] MEDS ORDERED: DOXYCYCLINE INJ 100 MG in SODIUM CHLORIDE 0.9% MINIBAG 100 ML IV SCH ×2
--- NOTE | 2017-04-02 01:19 | HISTORY & PHYSICAL EXAMINATION ---
DATE OF ADMISSION: 04/01/2017 HISTORY OF PRESENT ILLNESS: This is a 47-year-old white male with a history of anxiety and bipolar disorder and gout. He was seen here 3 days ago for an abscess of the nasal area for which he was started on antibiotic and pain medications. The infection was not controlled, continued to swell and was swelling to under the left eyelid, and he presented to the emergency room with these complaints. He denied fever or chills, change in vision or change in respirations. He was felt to have cellulitis as well as a worsened abscess collection. He received incision and drainage and packing of the abscess via the left nares, done by the emergency room doctor, Dr. Rubio and will be admitted now for IV antibiotics and management of the abscess and pain control. ALLERGIES: 1. AMOXICILLIN. 2. PENICILLIN. 3. SULFAMETHOXAZOLE. 4. TRIMETHOPRIM. MEDICATIONS AT HOME: 1. Tramadol. 2. Keflex. 3. Doxycycline. 4. Mupirocin. 5. Percocet. SOCIAL HISTORY: The patient smokes 1 pack a day, drinks no alcohol, denies any illicit drug use. FAMILY HISTORY: No significant history of premature heart disease, diabetes, cancer. REVIEW OF SYSTEMS: A comprehensive review of systems was performed and the pertinent positives and negatives are stated in the HPI and the remainder of the review of systems is negative. PHYSICAL EXAMINATION: GENERAL: Reveals a middle-aged white male who is in obvious pain from swelling and redness related to the abscess of the nasal area and swelling of his face. VITAL SIGNS: Temperature 37.5, blood pressure 169/109, pulse 82 in sinus rhythm , oxygen saturation 99% on room air. HEENT: Reveals redness with swelling of the left naries, the left lower eyelid and part of the left upper cheek, there is a packing strip tip emanating out from the left nares. His oral mucosa is moist. NECK: Supple, no JVD while supine and there are no carotid bruits. CHEST: Clear. HEART: Sounds are normal. ABDOMEN: Soft. Positive bowel sounds. EXTREMITIES: No clubbing, cyanosis or edema. NEUROLOGICALLY intact. LABS: Normal BMP except glucose 106. Normal liver tests. Lipase normal. White blood count 20.3 with a left shift, hemoglobin 14, platelet count normal. There was no INR done. No EKG done. No diagnostic imaging done. MRSA testing was positive. IMPRESSION AND DIAGNOSES: 1. Facial cellulitis. 2. Abscess of the nose. 3. Hypertension, likely from pain. 4. History of prior psychiatric disorder. 5. Smoking history. 6. MRSA positive. PLAN: Admit the patient for IV antibiotics, IV pain control and continued treatment of the abscess with daily packing and removal of the previous pack. Surgical consult will be ordered for this and/or wound clinic consult. Follow his white count and differential. Obtain an INR. The patient will not receive anticoagulants for DVT prophylaxis because of the risk of bleeding from the incision. SCDs will be ordered for DVT prophylaxis. JOB #: [id number] EXT JOB #:[id number] DONNA
[2017-04-02] MEDS: MORPHINE 2 MG/ML SYRINGE IVP PRN ×2 (01:29→06:05)
[2017-04-02] MEDS: SODIUM CHLORIDE FLUSH 0.9% 10 ML SYRINGE IVP SCH (06:05)
[2017-04-02 06:32] LABS: BASOPHILS # (AUTO) 0.1 10^3/uL (0.0-0.1); BASOPHILS % (AUTO) 0.5 %; EOSINOPHILS # (AUTO) 0.4 10^3/uL (0.0-0.7); EOSINOPHILS % (AUTO) 2.5 %; HCT - HEMATOCRIT 42.9 % (42.0-52.0); HGB - HEMOGLOBIN 14.5 g/dL (14.0-18.0); LYMPHOCYTES # (AUTO) 3.6 10^3/uL (1.5-3.5); LYMPHOCYTES % (AUTO) 22.4 %; MEAN CORPUSCULAR HEMOGLOBIN 32.1 pg (27.0-31.0); MEAN CORPUSCULAR HGB CONC 33.9 g/dL (32.0-36.0); MEAN CORPUSCULAR VOLUME 94.8 fL (80.0-94.0); MEAN PLATELET VOLUME 9.1 fL (7.4-11.4); MONOCYTES # (AUTO) 1.1 10^3/uL (0.0-1.0); NEUTROPHILS # (AUTO) 10.9 10^3/uL (1.5-6.6); NEUTROPHILS % (AUTO) 67.6 %; RED BLOOD COUNT 4.53 10^6/uL (4.70-6.10); RED CELL DISTRIBUTION WIDTH 13.1 % (12.0-15.0); UNCORRECTED WHITE BLOOD COUNT 16.1 x10^3/uL; WHITE BLOOD COUNT 16.1 x10^3/uL (4.8-10.8)
[2017-04-02 06:35] LABS: INR 1.2 (0.8-1.2)
[2017-04-02 06:36] LABS: CALCIUM 9.5 mg/dL (8.5-10.3); CREATININE 0.9 mg/dL (0.6-1.2); POTASSIUM 3.9 mmol/L (3.5-5.0)
[2017-04-02 07:12] VITALS: BP 144/79
[2017-04-02] MEDS ORDERED: VANCOMYCIN PER PHARMACY 1 GM in SODIUM CHLORIDE 0.9% 250 ML IV SCH (09:00)
[2017-04-02] MEDS ORDERED: VANCOMYCIN 1.5 GM/NS 500 ML 1.5 GM/500 ML BAG IV SCH (09:00)
[2017-04-02] MEDS ORDERED: FAMOTIDINE 20 MG TABLET PO SCH (09:00)
[2017-04-02] MEDS ORDERED: POLYETHYLENE GLYCOL 3350 17 GM PACKET PO SCH (09:00)
[2017-04-02] MEDS ORDERED: VANCOMYCIN INJ 1.5 GM in SODIUM CHLORIDE 0.9% 500 ML IV SCH (09:00)
[2017-04-02] MEDS ORDERED: ALPRAZolam 0.25 MG TABLET PO PRN (10:05)
--- NOTE | 2017-04-02 12:24 | Discharge Plan ---
Discharge Plan Disposition: 07 Against Medical Advice Condition: Serious Additional Instructions or Follow Up instructions: pt has the order for surgeon to evaluate him, but pt signed AMA and left hospital. Pt state he had antibiotics from ER prescribed to him. Patient state he will continue to take. No Smoking: If you smoke, Please STOP! Call for help.
--- NOTE | 2017-04-02 12:24 | DISCHARGE SUMMARY ---
"Discharge Summary Admit Date: 04/01/17 Discharge Date: 04/02/17 Condition at Discharge: Serious Discharge Disposition: 07 Against Medical Advice - DIAGNOSES Admission Diagnoses: 1, facial cellulitis 2, abscess of the nose 3, HTN 4, Hx of psychiatric disorder 5, hx of cigarette smoking Discharge Diagnoses with Status of Each Condition: pt signed AMA and left hospital - HPI History of Present Illness: please refer from Dr. Cedillo's HPI on 04/02/17 - CONSULTS | PROCEDURES Consultations: Dr. Baltazar, surgeon - HOSPITAL COURSE Hospital Course: Pt was admitted for facial cellulitis and nose abscess. Pt has the order for surgeon to consult the wound. I called the surgeon, Dr. Baltazar, who state he will see pt. Pt report he feel much better after he was treated in the hospital. Pt signed AMA, and left hospital at wage analyst. The surgeon did not see pt yet. Pt state to me he had antibiotics from ER prescribed to him, and he will continue to take as the schedule. - ALLERGIES Allergies/Adverse Reactions: Allergies Allergy/AdvReac Type Severity Reaction Status Date / Time amoxicillin Allergy Rash Verified 03/30/17 14:46 Penicillins Allergy Rash Verified 03/30/17 14:46 sulfamethoxazole Allergy Edema Verified 03/30/17 14:46 [From Bactrim] trimethoprim [From Bactrim] Allergy Edema Verified 03/30/17 14:46 - MEDICATIONS Home Medications: Ambulatory Orders Medication Instructions Recorded Confirmed Tramadol HCl 50 mg PO Q6H PRN #20 tablet 03/24/17 03/30/17 Cephalexin [Keflex] 500 mg PO TID #21 capsule 03/30/17 Doxycycline Monohydrate 100 mg PO BID #14 tablet 03/30/17 Mupirocin 1 applic TP TID #15 oint...g. 03/30/17 Oxycodone HCl/Acetaminophen 1 each PO Q6H PRN #20 tablet 03/30/17 [Percocet 5-325 mg Tablet] - LABS Result Diagrams: 04/02/17 06:02 04/02/17 06:02 - FOLLOW UP Follow Up: pt signed AMA and left hospital. Pt state he will continue to take antibiotics from ER to prescribe to him. Pt state, should his symptoms return or worsen, he will call 911 or come back to ER."
== END 2017-04-02 10:10 | disposition left against medical advice (07) | DRG 155 ==
LOC: EDUNIT# → ED 18:03 → MS3 21:00
PROVIDERS: ADMIT Internal Medicine; ATTEND Nurse Practitioner Gerontology
DX: J34.0 Abscess, furuncle and carbuncle of nose (principal); L03.211 Cellulitis of face; B95.62 Methicillin resistant Staphylococcus aureus infection as the cause of diseases classified elsewhere; F41.9 Anxiety disorder, unspecified; F31.9 Bipolar disorder, unspecified; M10.9 Gout, unspecified; F17.210 Nicotine dependence, cigarettes, uncomplicated; I10 Essential (primary) hypertension; Z88.0 Allergy status to penicillin
CPT/HCPCS: 10060; 36415; 80048; 80053; 83690; 85025; 85610; 87070; 87205; 94770; 96374; 96375; 96376; 99152; 99284

== ENCOUNTER 2017-05-04 14:55 | Emergency (ER) | payer MEDICAID ==
[2017-05-04 15:08] VITALS: BP 120/82
[2017-05-04] MEDS ORDERED: HYDROcod/ACETAM 5/325 MG TABLET PO STA (15:49)
[2017-05-04] MEDS ORDERED: predniSONE 20 MG TABLET PO STA (15:49)
--- NOTE | 2017-05-04 15:52 | ED Physician Documentation ---
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 R knee swollen. normal in color. Has had gout in the knee before.) Timing - onset: How many days ago (3) Timing - duration: Days (3) Timing - details: Gradual onset Pain level max: 8 Pain level now: 8 Improved by: Rest, Ice, Immobilization Worsened by: Moving, Palpating Associated symptoms: Swelling. No: Weakness, Numbness, Tingling Contributing factors: No: Anticoagulated, Prior ortho surgery, Prosthetic joint Review of Systems Constitutional: denies: Fever, Chills Cardiac: denies: Chest pain / pressure Respiratory: denies: Cough GI: denies: Abdominal Pain, Nausea, Vomiting, Diarrhea Skin: denies: Rash Musculoskeletal: denies: Neck pain, Back pain Neurologic: denies: Headache PD PAST MEDICAL HISTORY - Past Medical History Past Medical History: Yes Cardiovascular: None Respiratory: None Endocrine/Autoimmune: None GI: None : Other HEENT: None Psych: Anxiety, Bipolar disorder Musculoskeletal: None, Gout Derm: None - Past Surgical History Past Surgical History: Yes HEENT: Tonsil/Adenoidectomy - Present Medications Home Medications: Ambulatory Orders Medication Instructions Recorded Confirmed Hydrocodone/Acetaminophen 1 - 2 each PO Q6H PRN #14 tablet 05/04/17 [Hydrocodon-Acetaminophen 5-325] predniSONE [Prednisone] 40 mg PO DAILY #10 tablet 05/04/17 - Allergies Allergies/Adverse Reactions: Allergies Allergy/AdvReac Type Severity Reaction Status Date / Time amoxicillin Allergy Rash Verified 05/04/17 15:08 Penicillins Allergy Rash Verified 05/04/17 15:08 sulfamethoxazole Allergy Edema Verified 05/04/17 15:08 [From Bactrim] trimethoprim [From Bactrim] Allergy Edema Verified 05/04/17 15:08 - Social History Does the pt smoke?: Yes Smoking Status: Current every day smoker Does the pt drink ETOH?: No Does the pt have substance abuse?: No - Immunizations Immunizations are current?: Yes - POLST Patient has POLST: No PD ED PE NORMAL - Vitals Vital signs reviewed: Yes - General General: Alert and oriented X 3, No acute distress - HEENT HEENT: Moist mucous membranes - Derm Derm: Warm and dry - Extremities Extremities: Other (R knee - swelling and moderate effusion. No warmth. NVI. ACL, MCL, LCL, PCL intact. ) - Neuro Neuro: Alert and oriented X 3 Results - Vitals Vitals: Vital Signs - 24 hr 05/04/17 15:04 Temperature 37.3 C Heart Rate 113 H Respiratory 16 Rate Blood Pressure 120/82 H O2 Saturation 100 Oxygen O2 Source Room air - Rads (name of study) R knee xray Radiology: Prelim report reviewed, EMP read contemporaneously, See rad report ( Joint effusion without fracture or bone destruction. ) PD MEDICAL DECISION MAKING - ED course Complexity details: reviewed results, re-evaluated patient, considered differential, d/w patient, d/w family ED course: Patient is a 47-year-old male who presents to the emergency department with a right knee joint effusion. Placed an articulating knee brace from 10-[address] on pain medication and prednisone for home. He also has recurring gout in that knee, which is the rationale for using the steroids. No evidence of septic joint. No evidence of fracture. Patient counseled regarding signs and symptoms for which I believe and urgent re-evaluation would be necessary. Patient with good understanding of and agreement to plan and is comfortable going home at this time This document was made in part using voice recognition software. While efforts are made to proofread this document, sound alike and grammatical errors may occur. Departure - Departure Disposition: 01 Home, Self Care Clinical Impression: Knee effusion, right Condition: Good Instructions: ED Effusion Knee Follow-Up: your,doctor in 1 week [Other] Prescriptions: Hydrocodone/Acetaminophen [Hydrocodon-Acetaminophen 5-325] 1 - 2 each PO Q6H PRN #14 tablet PRN Reason: pain predniSONE [Prednisone] 40 mg PO DAILY #10 tablet Comments: Return if you worsen. This should improve over the next few days. Wear the brace as needed for comfort. Use her crutches at home as well. Do not drink alcohol or drive while on narcotic pain medicine. Note that many narcotic pain relievers also contain tylenol/acetaminophen. Please ensure that your total dose of acetaminophen from all sources does not exceed 3 grams (3000mg) per day. You may constipated on this medication, take a stool softener such as "Colace" twice a day while you are on it. Also recommend a [id number]-[id number]-iuclmuy laxative such as senna or MiraLAX any day that you do not have a bowel movement. If you received narcotic pain medication in the emergency department, do not drive or operate machinery for the next 24 hours. This document was made in part using voice recognition software. While efforts are made to proofread this document, sound alike and grammatical errors may occur. Discharge Date/Time: 05/04/17 16:39
[2017-05-04] MEDS ORDERED: predniSONE 20 MG TABLET ONE (16:19)
[2017-05-04] MEDS ORDERED: HYDROcod/ACETAM 5/325 MG TABLET ONE (16:19)
--- NOTE | 2017-05-04 16:25 | XRAY Preliminary Report ---
Exam: XR KNEE 4 VIEW RT IMPRESSION: Joint effusion without fracture or bone destruction. [facility] SITE ID: [id number]
--- NOTE | 2017-05-04 16:27 | XRAY Report ---
EXAM: RIGHT KNEE RADIOGRAPHY EXAM DATE: 05/04/2017 04:05 PM. CLINICAL HISTORY: R knee injury, hx gout. COMPARISON: None. TECHNIQUE: 4 views. FINDINGS: Bones: Normal. No fractures or bone lesions. Joints: Joint space and alignment appears satisfactory. There is a moderate to large joint effusion. Soft Tissues: Normal. No soft tissue swelling. IMPRESSION: Joint effusion without fracture or bone destruction. [facility] Referring Provider Line: [phone] SITE ID: [id number]
== END 2017-05-04 16:39 | disposition home or self-care (01) ==
LOC: ED 14:55
DX: M25.461 Effusion, right knee (principal); F17.200 Nicotine dependence, unspecified, uncomplicated
CPT/HCPCS: 73564; 99283; A9270; J7512

== ENCOUNTER 2017-05-08 20:20 | Emergency (ER) | payer MEDICAID ==
[2017-05-08 20:31] VITALS: BP 128/81
[2017-05-08] MEDS ORDERED: ONDANSETRON ODT 4 MG TABLET TL STA (20:40)
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
[2017-05-08] MEDS ORDERED: ONDANSETRON ODT 4 MG TABLET ONE (20:51)
== END 2017-05-08 20:46 | disposition home or self-care (01) ==
LOC: ED 20:20
DX: S09.90XA Unspecified injury of head, initial encounter (principal); S00.01XA Abrasion of scalp, initial encounter; W22.8XXA Striking against or struck by other objects, initial encounter; Y92.009 Unspecified place in unspecified non-institutional (private) residence as the place of occurrence of the external cause; F17.200 Nicotine dependence, unspecified, uncomplicated
CPT/HCPCS: 99283; 99284; Q0162

== ENCOUNTER 2017-06-16 22:41 | Outpatient (CLI) | payer MEDICAID | END 2017-06-16 22:42 | disposition critical access hospital (66) | LOC: EMS 22:41 | PROVIDERS: ATTEND Surgery | DX: M25.562 Pain in left knee (principal); W00.0XXA Fall on same level due to ice and snow, initial encounter | CPT/HCPCS: A0425; A0429 ==

== ENCOUNTER 2017-06-16 22:59 | Emergency (ER) | payer MEDICAID ==
[2017-06-16] MEDS ORDERED: HYDROcod/ACETAM 5/325 MG TABLET PO STA (23:13)
--- NOTE | 2017-06-16 23:52 | ED Physician Documentation ---
History of Present Illness - Stated complaint Stated Complaint: LEFT KNEE PAIN - Chief complaint Chief Complaint: Ext Problem - History obtained from History obtained from: Patient (pt arrived by EMS for left knee pain. he states that he tripped and fell yesterday. was able to get up and walk. states that it did not hurt his much this morning but as the day went on it became more painful. pain on the inside of his knee. no other injuries form the fall. ) Review of Systems Constitutional: denies: Fever, Chills Skin: denies: Rash, Lesions, Laceration (s) Musculoskeletal: reports: Joint pain (left knee), Pain with weight bearing ( left knee). denies: Neck pain, Back pain, Extremity swelling, Joint swelling Neurologic: denies: Generalized weakness, Focal weakness, Numbness PD PAST MEDICAL HISTORY - Past Medical History Past Medical History: Yes Cardiovascular: None Respiratory: None Neuro: None Endocrine/Autoimmune: None GI: None : Other HEENT: None Psych: Anxiety, Bipolar disorder Musculoskeletal: None, Gout Derm: None - Past Surgical History Past Surgical History: Yes HEENT: Tonsil/Adenoidectomy - Present Medications Home Medications: Ambulatory Orders Medication Instructions Recorded Confirmed Ondansetron Odt [Zofran] 4 mg TL Q6H PRN #14 tablet 05/08/17 - Allergies Allergies/Adverse Reactions: Allergies Allergy/AdvReac Type Severity Reaction Status Date / Time amoxicillin Allergy Rash Verified 06/16/17 23:07 Penicillins Allergy Rash Verified 06/16/17 23:07 sulfamethoxazole Allergy Edema Verified 06/16/17 23:07 [From Bactrim] trimethoprim [From Bactrim] Allergy Edema Verified 06/16/17 23:07 - Social History Does the pt smoke?: Yes Smoking Status: Current every day smoker Does the pt drink ETOH?: No Does the pt have substance abuse?: No - Immunizations Immunizations are current?: Yes - POLST Patient has POLST: No PD ED PE NORMAL - Vitals Vital signs reviewed: Yes - General General: Alert and oriented X 3, Well developed/nourished - Derm Derm: Normal color, Warm and dry, No rash - Extremities Extremities: No deformity, No tenderness to palpate (TTP along the medial joint line of the left knee. no hamstring tenderness, no lateral joint line tenderness, no TTP or defects in the quad or patella tendon region. ), No edema , No calf tenderness / cord. No: Normal ROM s pain (decreased ROM to the left knee secondary to the pain ) - Neuro Neuro: No sensory deficit (sensation intact to distal left LE) Results - Vitals Vitals: Vital Signs - 24 hr 06/16/17 06/17/17 23:05 00:14 Temperature 37.3 C Heart Rate 108 H 95 Respiratory 22 16 Rate Blood Pressure 162/110 H 149/95 H O2 Saturation 98 96 Oxygen O2 Source Room air - Rads (name of study) left knee Radiology: Final report received (No acute abnormality ), EMP read contemporaneously PD MEDICAL DECISION MAKING - ED course Complexity details: reviewed results, re-evaluated patient, considered differential, d/w patient ED course: no fracture on the x-ray. Pt is N/V intact. has medical joint line tenderness. this may be from a meniscus injury or MCL injury. Unable to evaluate stability secondary to his pain. Pt given crutches and immobilizer for his symptoms. He was instructed on RICE and informed to follow up with his primary care provider for a follow up and possible further studies. Departure - Departure Disposition: 01 Home, Self Care Clinical Impression: Knee pain, acute Qualifiers: Laterality: left Qualified Code(s): M25.562 - Pain in left knee Condition: Good Instructions: ED RICE, Crutches Weight Bearing Follow-Up: Primary, care provider [Other] Comments: Use the crutches and immobilizer as needed for comfort. You are still able to walk and put pressure on your leg as tolerated. Elevate and ice your knee as much as possible and use Motrin and tylenol for any discomfort. Contact your primary care provider for a follow up to discuss continue work up and MRI if needed.
[2017-06-17 00:15] VITALS: BP 149/95
--- NOTE | 2017-06-17 00:36 | XRAY Preliminary Report ---
Exam: XR KNEE 2 VIEW LT IMPRESSION: 1. No acute abnormality seen in the knee. [facility] SITE ID: [id number]
--- NOTE | 2017-06-17 00:39 | XRAY Report ---
EXAM: LEFT KNEE RADIOGRAPHY EXAM DATE: 06/17/2017 12:26 AM. CLINICAL HISTORY: Medial knee pain after fall . COMPARISON: None. TECHNIQUE: 2 views. FINDINGS: Bones: No acute fracture seen. Joints: No dislocation. Joint spaces appear intact. No joint effusion identified. Soft Tissues: Grossly unremarkable. IMPRESSION: 1. No acute abnormality seen in the knee. [facility] Referring Provider Line: [phone] SITE ID: [id number]
[2017-06-17] MEDS ORDERED: IBUPROFEN 800 MG TABLET PO STA (01:30)
== END 2017-06-17 01:04 | disposition home or self-care (01) ==
LOC: EDUNIT# → ED 22:59
DX: M25.562 Pain in left knee (principal); W01.0XXA Fall on same level from slipping, tripping and stumbling without subsequent striking against object, initial encounter; M10.9 Gout, unspecified
CPT/HCPCS: 29530; 73560; 99283; A9270

== ENCOUNTER 2017-07-02 09:16 | Outpatient (CLI) | payer MEDICAID ==
--- NOTE | 2017-07-02 12:05 | XRAY Report ---
DATE OF SERVICE: 07/02/2017 SCHERER VIEW OF PARANASAL SINUSES: 07/02/2017 CLINICAL INDICATION: Pre-MRI clearance, history of injury, possible metal in orbits. FINDINGS: Scherer view of the paranasal sinuses demonstrates no evidence of radiopaque foreign body in either orbit that would preclude MRI examination. Left greater than right maxillary mucosal thickening is present. No acute fracture is identified. IMPRESSION: CHRONIC MAXILLARY SINUS DISEASE. NO EVIDENCE OF A RADIOPAQUE INTRAORBITAL FOREIGN BODY THAT WOULD PRECLUDE A MRI EXAMINATION. TD: 07/02/2017 13:04
== END 2017-07-02 09:17 | disposition home or self-care (01) ==
LOC: DI.N 09:16
PROVIDERS: ATTEND Family Medicine
DX: J32.0 Chronic maxillary sinusitis (principal)
CPT/HCPCS: 70210

== ENCOUNTER 2017-07-08 13:05 | Outpatient (CLI) | payer MEDICAID ==
--- NOTE | 2017-07-08 18:11 | MRI Report ---
EXAM: LEFT KNEE MRI WITHOUT CONTRAST EXAM DATE: 07/08/2017 02:25 PM. CLINICAL HISTORY: Knee pain, acute left. COMPARISON: None. TECHNIQUE: Multiplanar, multisequence T1-weighted and fluid-sensitive sequences of the knee without c ontrast. Other: None. FINDINGS: Bones: Focal marrow edema at the lateral patella, series 401 image 29. Articular Cartilage: Some grade 2-3 chondromalacia at the lateral patellar facet. Some global articul ar cartilaginous thinning on both sides of the medial compartment, lateral compartment is relatively spared. Medial Meniscus: The medial meniscus is intact. Lateral Meniscus: The lateral meniscus is intact. Cruciate Ligaments: The anterior and posterior cruciate ligaments are intact. Collateral Ligaments: MCL is somewhat bowed medially and there is some increased T2 signal around it, no focal fluid-filled gaps are identified. Meniscus is partially subluxed out of the joint, slightly bowing the medial meniscus medially. Tendons: The quadriceps, patellar, semimembranosus, and popliteus tendons are unremarkable. Musculature: No edema or fatty atrophy. Other: Moderate-sized joint effusion. Small popliteal cyst. Focal tear in the lateral patellar retina culum, series 401 image 29. Medial retinaculum shows some edematous change but is intact. Medial plic a is identified. Some subcutaneous edema and swelling is seen around the knee, particularly at the la teral aspect, and also in Hoffa's fat pad. IMPRESSION: 1. There is some increased T2 signal in the lateral patella with a focal full-thickness tear at the l ateral patellar retinaculum. This may be secondary to a direct blow. Surrounding soft tissue swelling and edema is also present. 2. MCL is intact, a generous amount of swelling surrounds it, however. Medial meniscus is partially s ubluxed out of the joint, no tear. 3. Lateral compartment, LCL, cruciates appear normal. Quadriceps mechanism also unremarkable. 4. Moderate-sized joint effusion, small popliteal cyst. Generous amount of swelling around the knee. [facility] MUSCULOSKELETAL RADIOLOGY SECTION Referring Provider Line: [phone] SITE ID: [id number]
== END 2017-07-08 13:06 | disposition home or self-care (01) ==
LOC: DI 13:05
PROVIDERS: ATTEND Family Medicine
DX: S76.111A Strain of right quadriceps muscle, fascia and tendon, initial encounter (principal); M25.461 Effusion, right knee; M71.21 Synovial cyst of popliteal space [Baker], right knee

== ENCOUNTER 2018-02-21 13:48 | Outpatient (CLI) | payer SELFPAY | END 2018-02-21 13:49 | disposition critical access hospital (66) | LOC: EMS 13:48 | PROVIDERS: ATTEND Surgery | DX: R46.2 Strange and inexplicable behavior (principal) | CPT/HCPCS: A0425; A0427; A0999 ==

== ENCOUNTER 2018-02-21 14:11 | Emergency (ER) | payer SELFPAY ==
--- NOTE | 2018-02-21 14:24 | ED Physician Documentation ---
PD HPI MHE - Stated complaint Stated Complaint: MHE - Chief complaint Chief Complaint: MHE - History obtained from History obtained from: Patient, EMS - History of Present Illness Primary symptom: Psychosis (48-year-old gentleman with history of bipolar disorder. Noncompliant with prescription medications and uses marijuana for same and would like from me "prescription for a higher dose of that." [place] because he called 911 several times and then hung up. On scene he had been talking about some sort of tracking system having to do with GPS and [employer]. He has no specific complaints now but did become very agitated with paramedics and required some sedation with Versed which was helpful. He denies any other current medications for drug use other than some alcohol and Marijuana today.) Review of Systems Ten Systems: 10 systems reviewed and negative Constitutional: denies: Fever, Chills Throat: denies: Dental pain / toothache, Sore throat Cardiac: denies: Chest pain / pressure, Palpitations PD PAST MEDICAL HISTORY - Past Medical History Cardiovascular: None Respiratory: None Endocrine/Autoimmune: None GI: None : Other HEENT: None Psych: Anxiety, Bipolar disorder Musculoskeletal: None, Gout Derm: None - Past Surgical History Past Surgical History: Yes HEENT: Tonsil/Adenoidectomy - Present Medications Home Medications: Ambulatory Orders Medication Instructions Recorded Confirmed No Known Home Medications [No 02/21/18 02/21/18 Known Home Medications] - Allergies Allergies/Adverse Reactions: Allergies Allergy/AdvReac Type Severity Reaction Status Date / Time amoxicillin Allergy Rash Verified 02/21/18 14:21 Penicillins Allergy Rash Verified 02/21/18 14:21 sulfamethoxazole Allergy Edema Verified 02/21/18 14:21 [From Bactrim] trimethoprim [From Bactrim] Allergy Edema Verified 02/21/18 14:21 - Social History Does the pt smoke?: Yes Smoking Status: Current every day smoker Does the pt drink ETOH?: No Does the pt have substance abuse?: No - Family History Family history: reports: Non contributory - Immunizations Immunizations are current?: Yes - POLST Patient has POLST: No PD ED PE NORMAL - Vitals Vital signs reviewed: Yes - General General: Alert and oriented X 3 (Slightly slow slurred speech and slightly tangential. Talking about school and GPS devices on his phone and how where outside of the part of [place] that GPS works appropriately.) - HEENT HEENT: PERRL, EOMI - Neck Neck: Supple, no meningeal sign, No bony TTP - Cardiac Cardiac: RRR, No murmur - Respiratory Respiratory: No respiratory distress, Clear bilaterally - Abdomen Abdomen: Soft, Non tender - Back Back: No CVA TTP, No spinal TTP - Derm Derm: Normal color, Warm and dry - Extremities Extremities: No edema, No calf tenderness / cord - Neuro Neuro: Alert and oriented X 3, Normal speech - Psych Psych: Normal mood, Normal affect Results - Vitals Vitals: Vital Signs - 24 hr 02/21/18 14:16 Temperature 36.6 C Heart Rate 97 Respiratory 16 Rate Blood Pressure 146/86 H O2 Saturation 100 Oxygen O2 Source Room air - Labs Labs: Laboratory Tests 02/21/18 02/21/18 02/21/18 14:17 14:17 14:17 WBC 10.8 RBC 4.17 L Hgb 13.5 L Hct 38.0 L MCV 91.2 MCH 32.3 H MCHC 35.5 RDW 13.1 Plt Count 229 MPV 8.4 Neut # (Auto) 6.9 H Lymph # (Auto) 2.8 Dillon # (Auto) 0.7 Eos # (Auto) 0.3 Baso # (Auto) 0.1 Absolute Nucleated RBC 0.00 Nucleated RBC % 0.0 Sodium 136 Potassium 3.6 Chloride 103 Carbon Dioxide 24 Anion Gap 9.0 BUN 10 Creatinine 0.8 Estimated GFR (MDRD) 104 Glucose 103 H Calcium 8.9 Total Bilirubin 0.3 AST 23 ALT 12 Alkaline Phosphatase 60 Total Protein 6.7 Albumin 4.0 Globulin 2.7 Albumin/Globulin Ratio 1.5 Lipase 47 TSH 0.75 Urine Color Urine Clarity Urine pH Ur Specific [place] Urine Protein Urine Glucose (UA) Urine Ketones Urine Occult Blood Urine Nitrite Urine Bilirubin Urine Urobilinogen Ur Leukocyte Esterase Ur Microscopic Review Urine Culture Comments Salicylates < 6.0 Urine Opiates Screen Ur Oxycodone Screen Urine Methadone Screen Ur Propoxyphene Screen Acetaminophen < 10 L Ur Barbiturates Screen Ur Tricyclics Screen Ur Phencyclidine Scrn Ur Amphetamine Screen U Methamphetamines Scrn U Benzodiazepines Scrn Urine Cocaine Screen U Cannabinoids Screen Ethyl Alcohol < 5.0 02/21/18 15:15 WBC RBC Hgb Hct MCV MCH MCHC RDW Plt Count MPV Neut # (Auto) Lymph # (Auto) Dillon # (Auto) Eos # (Auto) Baso # (Auto) Absolute Nucleated RBC Nucleated RBC % Sodium Potassium Chloride Carbon Dioxide Anion Gap BUN Creatinine Estimated GFR (MDRD) Glucose Calcium Total Bilirubin AST ALT Alkaline Phosphatase Total Protein Albumin Globulin Albumin/Globulin Ratio Lipase TSH Urine Color YELLOW Urine Clarity CLEAR Urine pH 6.5 Ur Specific [place] 1.020 Urine Protein TRACE Urine Glucose (UA) NEGATIVE Urine Ketones NEGATIVE Urine Occult Blood TRACE-LYSE Urine Nitrite NEGATIVE Urine Bilirubin NEGATIVE Urine Urobilinogen 0.2 (NORMAL) Ur Leukocyte Esterase NEGATIVE Ur Microscopic Review NOT INDICATED Urine Culture Comments NOT INDICATED Salicylates Urine Opiates Screen NEGATIVE Ur Oxycodone Screen NEGATIVE Urine Methadone Screen NEGATIVE Ur Propoxyphene Screen NEGATIVE Acetaminophen Ur Barbiturates Screen NEGATIVE Ur Tricyclics Screen NEGATIVE Ur Phencyclidine Scrn NEGATIVE Ur Amphetamine Screen POSITIVE H U Methamphetamines Scrn POSITIVE H U Benzodiazepines Scrn NEGATIVE Urine Cocaine Screen NEGATIVE U Cannabinoids Screen POSITIVE H Ethyl Alcohol PD MEDICAL DECISION MAKING - ED course ED course: 48-year-old gentleman presents with odd behavior. Initially I thought was probably an exacerbation of underlying psychiatric disease, however after a few hours while waiting for tele-psychiatry he became much more normal and lucid. Given the findings that point it seems likely that the methamphetamines in his system were probably causative for his odd behavior. He denies using any methamphetamines. - Sepsis Event Vital Signs: Vital Signs - 24 hr 02/21/18 14:16 Temperature 36.6 C Heart Rate 97 Respiratory 16 Rate Blood Pressure 146/86 H O2 Saturation 100 Oxygen O2 Source Room air Departure - Departure Disposition: 01 Home, Self Care Clinical Impression: Methamphetamine abuse Condition: Good Record reviewed to determine appropriate education?: Yes Instructions: ED Drug Abuse General Comments: Your blood pressure was elevated today on check into the emergency department. This does not mean that you have hypertension, it is a common phenomenon to come to the emergency department and have elevated blood pressure. I recommend that you see your primary care physician within the week to have it rechecked when you are feeling better. Call your doctor to arrange a follow-up appointment, make the next available appointment. In the interim, return anytime if worse or if new symptoms develop.
[2018-02-21 14:31] LABS: BASOPHILS # (AUTO) 0.1 10^3/uL (0.0-0.1); BASOPHILS % (AUTO) 1.1 %; EOSINOPHILS # (AUTO) 0.3 10^3/uL (0.0-0.7); EOSINOPHILS % (AUTO) 2.4 %; HGB - HEMOGLOBIN 13.5 g/dL (14.0-18.0); LYMPHOCYTES # (AUTO) 2.8 10^3/uL (1.5-3.5); LYMPHOCYTES % (AUTO) 26.3 %; MEAN CORPUSCULAR HEMOGLOBIN 32.3 pg (27.0-31.0); MEAN CORPUSCULAR HGB CONC 35.5 g/dL (32.0-36.0); MEAN CORPUSCULAR VOLUME 91.2 fL (80.0-94.0); MEAN PLATELET VOLUME 8.4 fL (7.4-11.4); MONOCYTES # (AUTO) 0.7 10^3/uL (0.0-1.0); MONOCYTES % (AUTO) 6.4 %; NEUTROPHILS # (AUTO) 6.9 10^3/uL (1.5-6.6); NEUTROPHILS % (AUTO) 63.8 %; PLT - PLATELET COUNT 229 10^3/uL (130-450); RED BLOOD COUNT 4.17 10^6/uL (4.70-6.10); RED CELL DISTRIBUTION WIDTH 13.1 % (12.0-15.0); WHITE BLOOD COUNT 10.8 x10^3/uL (4.8-10.8)
[2018-02-21 14:45] LABS: ALBUMIN/GLOBULIN RATIO 1.5 (1.0-2.2); ALKALINE PHOSPHATASE 60 IU/L (42-121); ALT ALANINE AMINOTRANSFERASE 12 IU/L (10-60); AST ASPARTATE AMINOTRANSFERASE 23 IU/L (10-42); BILIRUBIN,TOTAL 0.3 mg/dL (0.2-1.0); BUN - BLOOD UREA NITROGEN 10 mg/dL (6-20); CALCIUM 8.9 mg/dL (8.5-10.3); CARBON DIOXIDE - CO2 24 mmol/L (21-32); CHLORIDE 103 mmol/L (101-111); CREATININE 0.8 mg/dL (0.6-1.2); GFR - MDRD 104 (>89); GLUCOSE 103 mg/dL (70-100); LIPASE 47 U/L (22-51); SALICYLATE < 6.0 mg/dL; SODIUM 136 mmol/L (135-145); TOTAL PROTEIN 6.7 g/dL (6.7-8.2)
[2018-02-21 14:50] LABS: ACETAMINOPHEN < 10 ug/mL (10-30)
[2018-02-21 16:48] LABS: MUDS CUTOFF CONCENTRATIONS CUTOFF CONC BELOW:
[2018-02-21 16:52] LABS: AMPHETAMINE SCREEN,URINE POSITIVE (NEGATIVE); BENZODIAZEPINES SCREEN, URINE NEGATIVE (NEGATIVE); BILIRUBIN,URINE NEGATIVE (NEGATIVE); CLARITY,URINE CLEAR (CLEAR); COCAINE SCREEN URINE NEGATIVE (NEGATIVE); GLUCOSE, URINE (UA) NEGATIVE (NEGATIVE); KETONES,URINE (UA) NEGATIVE (NEGATIVE); LEUKOCYTE ESTERASE, URINE NEGATIVE (NEGATIVE); METHADONE SCREEN, URINE NEGATIVE (NEGATIVE); METHAMPHETAMINES SCREEN, URINE POSITIVE (NEGATIVE); NITRITE,URINE NEGATIVE (NEGATIVE); OCCULT BLOOD,URINE TRACE-LYSE (NEGATIVE); OPIATE SCREEN, URINE NEGATIVE (NEGATIVE); OXYCODONE SCREEN, URINE NEGATIVE (NEGATIVE); PH,URINE 6.5 PH (5.0-7.5); PROPOXYPHENE SCREEN, URINE NEGATIVE (NEGATIVE); PROTEIN,URINE TRACE mg/dL (NEGATIVE); TRICYCLIC ANTIDEPRESSANT,URINE NEGATIVE (NEGATIVE); UROBILINOGEN,URINE 0.2 (NORMAL) E.U./dL (NORMAL)
[2018-02-21 18:16] VITALS: BP 137/88
== END 2018-02-21 18:18 | disposition home or self-care (01) ==
LOC: EDUNIT# → ED 14:11
DX: F15.129 Other stimulant abuse with intoxication, unspecified (principal); R03.0 Elevated blood-pressure reading, without diagnosis of hypertension; F17.200 Nicotine dependence, unspecified, uncomplicated
CPT/HCPCS: 36415; 80053; 80306; 80307; 80320; 80329; 81001; 81003; 83690; 84443; 85025; 87086; 99283

== ENCOUNTER 2018-02-27 20:22 | Outpatient (CLI) | payer MEDICAID | END 2018-02-27 20:23 | disposition critical access hospital (66) | LOC: EMS 20:22 | PROVIDERS: ATTEND Surgery | DX: R41.82 Altered mental status, unspecified (principal); R09.89 Other specified symptoms and signs involving the circulatory and respiratory systems | CPT/HCPCS: A0425; A0429 ==

== ENCOUNTER 2018-02-27 20:41 | Emergency (ER) | payer MEDICAID ==
[2018-02-27] MEDS ORDERED: SODIUM CHLORIDE 0.9% 1,000 ML IV ONE (20:56)
--- NOTE | 2018-02-27 21:16 | ED Physician Documentation ---
History of Present Illness - Stated complaint Stated Complaint: INTOXICATION - Chief complaint Chief Complaint: MHE - Additonal information Additional information: 48-year-old male was brought in by EMS for acute intoxication from methamphetamines. No reports of trauma or injury. The patient denies any other coingestion. The patient's denying suicidal or homicidal ideations. The patient has no specific medical complaint. Symptoms are described as moderate. Review of Systems Constitutional: denies: Fever Eyes: denies: Loss of vision Nose: denies: Congestion Throat: denies: Sore throat Cardiac: denies: Chest pain / pressure Respiratory: denies: Dyspnea GI: denies: Abdominal Pain, Vomiting Musculoskeletal: denies: Neck pain, Back pain Neurologic: denies: Focal weakness Psychiatric: denies: Suicidal, Homicidal PD PAST MEDICAL HISTORY - Past Medical History Cardiovascular: None Respiratory: None Endocrine/Autoimmune: None GI: None : Other HEENT: None Psych: Anxiety, Bipolar disorder Musculoskeletal: None, Gout Derm: None - Past Surgical History Past Surgical History: Yes HEENT: Tonsil/Adenoidectomy - Present Medications Home Medications: Ambulatory Orders Medication Instructions Recorded Confirmed No Known Home Medications [No 02/21/18 02/21/18 Known Home Medications] - Allergies Allergies/Adverse Reactions: Allergies Allergy/AdvReac Type Severity Reaction Status Date / Time amoxicillin Allergy Rash Verified 02/21/18 14:21 Penicillins Allergy Rash Verified 02/21/18 14:21 sulfamethoxazole Allergy Edema Verified 02/21/18 14:21 [From Bactrim] trimethoprim [From Bactrim] Allergy Edema Verified 02/21/18 14:21 - Social History Does the pt smoke?: Yes Smoking Status: Current every day smoker Does the pt drink ETOH?: No Does the pt have substance abuse?: No - Immunizations Immunizations are current?: Yes - POLST Patient has POLST: No PD ED PE NORMAL - General General: Other (48-year-old male who appears acutely intoxicated for methamphetamines, no obvious signs of trauma) - HEENT HEENT: Atraumatic, PERRL, EOMI, Other (Poor dental hygiene) - Cardiac Cardiac: Other (Tachycardia with a regular rhythm) - Respiratory Respiratory: No respiratory distress, Clear bilaterally - Abdomen Abdomen: Soft, Non tender - Derm Derm: Normal color - Extremities Extremities: No deformity, Normal ROM s pain, No edema - Neuro Neuro: Alert and oriented X 3, No motor deficit Results - Vitals Vitals: Vital Signs - 24 hr 02/27/18 02/28/18 02/28/18 20:42 00:10 05:48 Temperature 36.4 C L 36.0 C L 36.5 C Heart Rate 122 H 96 80 Respiratory 18 20 16 Rate Blood Pressure 156/137 H 139/115 H 122/71 O2 Saturation 100 99 98 Oxygen O2 Source Room air - Labs Labs: Laboratory Tests 02/27/18 02/27/18 02/28/18 21:20 21:20 00:05 WBC 16.2 H RBC 4.79 Hgb 15.2 Hct 43.1 MCV 89.8 MCH 31.8 H MCHC 35.4 RDW 13.1 Plt Count 294 MPV 8.2 Neut # (Auto) 11.7 H Lymph # (Auto) 3.2 [place] # (Auto) 0.8 Eos # (Auto) 0.3 Baso # (Auto) 0.2 H Absolute Nucleated RBC 0.01 Nucleated RBC % 0.0 Sodium 137 Potassium 3.7 Chloride 102 Carbon Dioxide 22 Anion Gap 13.0 BUN 14 Creatinine 1.2 Estimated GFR (MDRD) 65 L Glucose 112 H Calcium 9.8 Total Bilirubin 0.7 AST 26 ALT 15 Alkaline Phosphatase 72 Total Protein 7.8 Albumin 4.6 Globulin 3.2 Albumin/Globulin Ratio 1.4 Lipase 26 Urine Color YELLOW Urine Clarity CLEAR Urine pH 7.5 Ur Specific [place] 1.015 Urine Protein TRACE Urine Glucose (UA) NEGATIVE Urine Ketones NEGATIVE Urine Occult Blood NEGATIVE Urine Nitrite NEGATIVE Urine Bilirubin NEGATIVE Urine Urobilinogen 0.2 (NORMAL) Ur Leukocyte Esterase NEGATIVE Ur Microscopic Review NOT INDICATED Urine Culture Comments NOT INDICATED Salicylates < 6.0 Urine Opiates Screen NEGATIVE Ur Oxycodone Screen NEGATIVE Urine Methadone Screen NEGATIVE Ur Propoxyphene Screen NEGATIVE Acetaminophen < 10 L Ur Barbiturates Screen NEGATIVE Ur Tricyclics Screen NEGATIVE Ur Phencyclidine Scrn NEGATIVE Ur Amphetamine Screen POSITIVE H U Methamphetamines Scrn POSITIVE H U Benzodiazepines Scrn NEGATIVE Urine Cocaine Screen NEGATIVE U Cannabinoids Screen POSITIVE H Ethyl Alcohol < 5.0 PD MEDICAL DECISION MAKING - ED course ED course: The patient was observed in the emergency department for numerous hours while he slept. The patient on final evaluation was back to his baseline. The patient appears clinically sober and appropriate for discharge. The patient has no suicidal or homicidal ideations. The patient is denying any acute medical complaints. The patient will obtain a sober ride home. I discussed warning signs and recommended returning to the emergency department medially for worsening or any concerns. - Sepsis Event Vital Signs: Vital Signs - 24 hr 02/27/18 02/28/18 02/28/18 20:42 00:10 05:48 Temperature 36.4 C L 36.0 C L 36.5 C Heart Rate 122 H 96 80 Respiratory 18 20 16 Rate Blood Pressure 156/137 H 139/115 H 122/71 O2 Saturation 100 99 98 Oxygen O2 Source Room air Departure - Departure Disposition: 01 Home, Self Care Clinical Impression: Intoxication Condition: Good Instructions: Addiction Drug Abuse Tx Comments: Please follow-up with primary care. Please return to the emergency department for worsening symptoms or any concerns
[2018-02-27 21:27] LABS: BASOPHILS # (AUTO) 0.2 10^3/uL (0.0-0.1); BASOPHILS % (AUTO) 1.3 %; EOSINOPHILS # (AUTO) 0.3 10^3/uL (0.0-0.7); EOSINOPHILS % (AUTO) 2.1 %; HGB - HEMOGLOBIN 15.2 g/dL (14.0-18.0); LYMPHOCYTES # (AUTO) 3.2 10^3/uL (1.5-3.5); LYMPHOCYTES % (AUTO) 19.5 %; MEAN CORPUSCULAR HEMOGLOBIN 31.8 pg (27.0-31.0); MEAN CORPUSCULAR HGB CONC 35.4 g/dL (32.0-36.0); MEAN CORPUSCULAR VOLUME 89.8 fL (80.0-94.0); MEAN PLATELET VOLUME 8.2 fL (7.4-11.4); MONOCYTES # (AUTO) 0.8 10^3/uL (0.0-1.0); MONOCYTES % (AUTO) 4.9 %; NEUTROPHILS # (AUTO) 11.7 10^3/uL (1.5-6.6); NEUTROPHILS % (AUTO) 72.2 %; PLT - PLATELET COUNT 294 10^3/uL (130-450); RED BLOOD COUNT 4.79 10^6/uL (4.70-6.10); RED CELL DISTRIBUTION WIDTH 13.1 % (12.0-15.0); WHITE BLOOD COUNT 16.2 x10^3/uL (4.8-10.8)
[2018-02-27 21:42] LABS: ALBUMIN 4.6 g/dL (3.2-5.5); ALBUMIN/GLOBULIN RATIO 1.4 (1.0-2.2); ALKALINE PHOSPHATASE 72 IU/L (42-121); ALT ALANINE AMINOTRANSFERASE 15 IU/L (10-60); AST ASPARTATE AMINOTRANSFERASE 26 IU/L (10-42); BILIRUBIN,TOTAL 0.7 mg/dL (0.2-1.0); BUN - BLOOD UREA NITROGEN 14 mg/dL (6-20); CALCIUM 9.8 mg/dL (8.5-10.3); CARBON DIOXIDE - CO2 22 mmol/L (21-32); CHLORIDE 102 mmol/L (101-111); CREATININE 1.2 mg/dL (0.6-1.2); GFR - MDRD 65 (>89); GLUCOSE 112 mg/dL (70-100); LIPASE 26 U/L (22-51); SALICYLATE < 6.0 mg/dL; SODIUM 137 mmol/L (135-145); TOTAL PROTEIN 7.8 g/dL (6.7-8.2)
[2018-02-27 21:53] LABS: ACETAMINOPHEN < 10 ug/mL (10-30)
[2018-02-28 00:09] LABS: MUDS CUTOFF CONCENTRATIONS CUTOFF CONC BELOW:
[2018-02-28 00:12] LABS: BILIRUBIN,URINE NEGATIVE (NEGATIVE); GLUCOSE, URINE (UA) NEGATIVE (NEGATIVE); KETONES,URINE (UA) NEGATIVE (NEGATIVE); LEUKOCYTE ESTERASE, URINE NEGATIVE (NEGATIVE); NITRITE,URINE NEGATIVE (NEGATIVE); OCCULT BLOOD,URINE NEGATIVE (NEGATIVE); PH,URINE 7.5 PH (5.0-7.5); PROTEIN,URINE TRACE mg/dL (NEGATIVE); UROBILINOGEN,URINE 0.2 (NORMAL) E.U./dL (NORMAL)
[2018-02-28 00:15] LABS: CLARITY,URINE CLEAR (CLEAR)
[2018-02-28 00:23] LABS: AMPHETAMINE SCREEN,URINE POSITIVE (NEGATIVE); BENZODIAZEPINES SCREEN, URINE NEGATIVE (NEGATIVE); COCAINE SCREEN URINE NEGATIVE (NEGATIVE); METHADONE SCREEN, URINE NEGATIVE (NEGATIVE); METHAMPHETAMINES SCREEN, URINE POSITIVE (NEGATIVE); OPIATE SCREEN, URINE NEGATIVE (NEGATIVE); OXYCODONE SCREEN, URINE NEGATIVE (NEGATIVE); PROPOXYPHENE SCREEN, URINE NEGATIVE (NEGATIVE); TRICYCLIC ANTIDEPRESSANT,URINE NEGATIVE (NEGATIVE)
[2018-02-28 05:49] VITALS: BP 122/71
== END 2018-02-28 07:12 | disposition home or self-care (01) ==
LOC: EDUNIT# → ED 20:41
DX: F15.129 Other stimulant abuse with intoxication, unspecified (principal); F17.200 Nicotine dependence, unspecified, uncomplicated
CPT/HCPCS: 36415; 80053; 80306; 80307; 80320; 80329; 81001; 81003; 83690; 85025; 87086; 96360; 99283; 99284

== ENCOUNTER 2018-03-01 13:17 | Outpatient (CLI) | payer MEDICAID | END 2018-03-01 13:18 | disposition critical access hospital (66) | LOC: EMS 13:17 | PROVIDERS: ATTEND Surgery | DX: R41.82 Altered mental status, unspecified (principal) | CPT/HCPCS: A0425; A0429 ==

== ENCOUNTER 2018-03-01 13:34 | Emergency (ER) | payer MEDICAID ==
--- NOTE | 2018-03-01 13:42 | ED Physician Documentation ---
PD HPI MHE - Stated complaint Stated Complaint: MHE - History obtained from History obtained from: Patient, EMS - History of Present Illness Primary symptom: Psychosis (he feels that he has been poisoned by his car ( radiation from it and also electical impulses and still feels that he has the electricity coursing through his body). States it has been couple of days since meth use. Does have history of bipolar and feels that that was exacerbated the past few weeks even before recent meth use.), Anxiety. No: Suicidal ideation Timing - onset: How many weeks ago (increasing symptoms the past few weeks. Worsened the past week with also recent meth use.) Contributing factors: Substance abuse - drugs, Out of meds (has not taken meds for bipolar for several months. Says most recent meds were Wellbutrin and ? Zyprexa. Had been on Depakote and lithium in the past as well at different times.) Similar symptoms before: Diagnosis Recently seen: Emergency Dept (couple visits in the past week for psychosis and agitation but improved over several hours and felt to be drug related at the time, with psych underpining.), Other (he made appt with [facility] but did not go to it.) Review of Systems Constitutional: denies: Fever Nose: denies: Rhinorrhea / runny nose, Congestion Throat: denies: Sore throat Respiratory: denies: Cough GI: denies: Abdominal Pain, Nausea, Vomiting, Diarrhea : denies: Dysuria Skin: denies: Rash, Lesions Neurologic: denies: Focal weakness, Numbness, Near syncope, Headache Psychiatric: reports: Depressed, Delusions, Anxiety. denies: Suicidal Endocrine: denies: Weight loss Immunocompromised: denies: Immunocompromised PD PAST MEDICAL HISTORY - Past Medical History Cardiovascular: None Respiratory: None Endocrine/Autoimmune: None GI: None : Other HEENT: None Psych: Anxiety, Bipolar disorder Musculoskeletal: None, Gout Derm: None - Past Surgical History Past Surgical History: Yes HEENT: Tonsil/Adenoidectomy - Present Medications Home Medications: Ambulatory Orders Medication Instructions Recorded Confirmed Lorazepam [Ativan] 1 mg PO BID #12 tablet 03/01/18 OLANZapine [Zyprexa] 5 mg PO BID #40 tablet 03/01/18 buPROPion [Wellbutrin Sr] 100 mg PO BID #40 tablet 03/01/18 - Allergies Allergies/Adverse Reactions: Allergies Allergy/AdvReac Type Severity Reaction Status Date / Time amoxicillin Allergy Rash Verified 02/21/18 14:21 Penicillins Allergy Rash Verified 02/21/18 14:21 sulfamethoxazole Allergy Edema Verified 02/21/18 14:21 [From Bactrim] trimethoprim [From Bactrim] Allergy Edema Verified 02/21/18 14:21 - Social History Does the pt smoke?: Yes Smoking Status: Current every day smoker Does the pt drink ETOH?: No Does the pt have substance abuse?: No - Immunizations Immunizations are current?: Yes - POLST Patient has POLST: No PD ED PE NORMAL - Vitals Vital signs reviewed: Yes - General General: Alert and oriented X 3, No acute distress, Well developed/nourished, Other (labile emotions from crying to smiling over few minutes. Speech not pressured but does have some element of rambling. Some loose associations. Delusions of feeling had has had radiation poisoning from his car and cell phone. He is asking for help. Distressed actually when left alone in the room and keeps calling to get someone to come in to be with him. ) - HEENT HEENT: Atraumatic, Moist mucous membranes, Pharynx benign - Neck Neck: Supple, no meningeal sign, No adenopathy - Cardiac Cardiac: RRR, No murmur - Respiratory Respiratory: Clear bilaterally - Abdomen Abdomen: Soft, Non tender - Back Back: No CVA TTP - Derm Derm: Normal color, Warm and dry - Extremities Extremities: No deformity, No tenderness to palpate, Normal ROM s pain - Neuro Neuro: Alert and oriented X 3, No motor deficit, Normal speech Eye Opening: Spontaneous Motor: Obeys Commands Verbal: Oriented GCS Score: 15 - Psych Psych: Normal mood Results - Vitals Vitals: Vital Signs - 24 hr 03/01/18 03/01/18 13:39 18:38 Temperature 36.3 C L 36.3 C L Heart Rate 88 89 Respiratory 20 17 Rate Blood Pressure 116/88 H 151/120 H O2 Saturation 99 99 Oxygen O2 Source Room air - Labs Labs: Laboratory Tests 03/01/18 03/01/18 03/01/18 13:30 13:33 13:33 WBC RBC Hgb Hct MCV MCH MCHC RDW Plt Count MPV Neut # (Auto) Lymph # (Auto) [place] # (Auto) Eos # (Auto) Baso # (Auto) Absolute Nucleated RBC Nucleated RBC % Sodium Potassium Chloride Carbon Dioxide Anion Gap BUN Creatinine Estimated GFR (MDRD) Glucose Calcium Total Bilirubin AST ALT Alkaline Phosphatase Total Protein Albumin Globulin Albumin/Globulin Ratio Lipase TSH 1.80 Urine Color YELLOW Urine Clarity CLEAR Urine pH 6.0 Ur Specific [place] 1.015 Urine Protein NEGATIVE Urine Glucose (UA) NEGATIVE Urine Ketones NEGATIVE Urine Occult Blood TRACE-INTA Urine Nitrite NEGATIVE Urine Bilirubin NEGATIVE Urine Urobilinogen 0.2 (NORMAL) Ur Leukocyte Esterase NEGATIVE Ur Microscopic Review NOT INDICATED Urine Culture Comments NOT INDICATED Salicylates < 6.0 Urine Opiates Screen NEGATIVE Ur Oxycodone Screen NEGATIVE Urine Methadone Screen NEGATIVE Ur Propoxyphene Screen NEGATIVE Acetaminophen < 10 L Ur Barbiturates Screen NEGATIVE Ur Tricyclics Screen NEGATIVE Ur Phencyclidine Scrn NEGATIVE Ur Amphetamine Screen POSITIVE H U Methamphetamines Scrn NEGATIVE U Benzodiazepines Scrn NEGATIVE Urine Cocaine Screen NEGATIVE U Cannabinoids Screen POSITIVE H Ethyl Alcohol 03/01/18 03/01/18 13:47 13:47 WBC 12.7 H RBC 4.65 L Hgb 14.8 Hct 42.4 MCV 91.3 MCH 31.9 H MCHC 35.0 RDW 13.1 Plt Count 310 MPV 8.2 Neut # (Auto) 7.2 H Lymph # (Auto) 4.2 H [place] # (Auto) 0.8 Eos # (Auto) 0.4 Baso # (Auto) 0.1 Absolute Nucleated RBC 0.00 Nucleated RBC % 0.0 Sodium 137 Potassium 3.3 L Chloride 100 L Carbon Dioxide 26 Anion Gap 11.0 BUN 11 Creatinine 1.0 Estimated GFR (MDRD) 80 L Glucose 103 H Calcium 9.6 Total Bilirubin 0.7 AST 20 ALT 14 Alkaline Phosphatase 70 Total Protein 7.8 Albumin 4.6 Globulin 3.2 Albumin/Globulin Ratio 1.4 Lipase 175 H TSH Urine Color Urine Clarity Urine pH Ur Specific [place] Urine Protein Urine Glucose (UA) Urine Ketones Urine Occult Blood Urine Nitrite Urine Bilirubin Urine Urobilinogen Ur Leukocyte Esterase Ur Microscopic Review Urine Culture Comments Salicylates Urine Opiates Screen Ur Oxycodone Screen Urine Methadone Screen Ur Propoxyphene Screen Acetaminophen Ur Barbiturates Screen Ur Tricyclics Screen Ur Phencyclidine Scrn Ur Amphetamine Screen U Methamphetamines Scrn U Benzodiazepines Scrn Urine Cocaine Screen U Cannabinoids Screen Ethyl Alcohol < 5.0 PD MEDICAL DECISION MAKING - ED course Complexity details: reviewed old records, re-evaluated patient (improved with PO meds. He is amenable to resuming prior Rxs. ), considered differential (I think he is presenting primarily with psychiatric symptoms with hypomanic symptoms and paranoia. Recently there had been some overlay with recent drug use of meth. However it sounds like an underlying bipolar exacerbation over the last few weeks. He is asking for help. Social work will see him regarding psychiatric treatment or dual diagnosis facilities. We will start him with some antianxiety and antipsychotic medications with a dose of Zyprexa and Ativan as well as a nicotine patch right now. He is asking for help. He is not suicidal nor overtly manic so at this point is not being held involuntarily. ), d/w patient, d/w [employer] consultant (precision printing worker was consulted and talked with the patient. She was able to arrange follow-up for him at the [facility] which [facility]. A taxi voucher will be provided for him to get back to his car in [place] and he will drive himself from there to the treatment center. The patient is agreeable to this. Will resume medications that he had been on previously for the bipolar disorder.) - Sepsis Event Vital Signs: Vital Signs - 24 hr 03/01/18 03/01/18 13:39 18:38 Temperature 36.3 C L 36.3 C L Heart Rate 88 89 Respiratory 20 17 Rate Blood Pressure 116/88 H 151/120 H O2 Saturation 99 99 Oxygen O2 Source Room air Departure - Departure Disposition: 01 Home, Self Care Clinical Impression: Hypomania Bipolar affective disorder Qualifiers: Active/Remission status: currently active Current bipolar episode type: hypomanic Qualified Code(s): F31.0 - Bipolar disorder, current episode hypomanic Condition: Stable Record reviewed to determine appropriate education?: Yes Instructions: ED Manic Depression Prescriptions: buPROPion [Wellbutrin Sr] 100 mg PO BID #40 tablet Lorazepam [Ativan] 1 mg PO BID #12 tablet OLANZapine [Zyprexa] 5 mg PO BID #40 tablet Comments: After you get to her car, go to the [facility] as arranged (the directions were given by the social work assistant). Drink lots of fluids. No recreational drug use. Start medications of Wellbutrin and Zyprexa twice daily. Use Ativan twice daily if needed for anxiety or sleep. Follow-up with [facility], call tomorrow for an appointment. The [facility] will also likely provide you follow-up options as well. Discharge Date/Time: 03/01/18 18:46
[2018-03-01 13:48] LABS: MUDS CUTOFF CONCENTRATIONS CUTOFF CONC BELOW:
[2018-03-01 13:51] LABS: BILIRUBIN,URINE NEGATIVE (NEGATIVE); GLUCOSE, URINE (UA) NEGATIVE (NEGATIVE); KETONES,URINE (UA) NEGATIVE (NEGATIVE); LEUKOCYTE ESTERASE, URINE NEGATIVE (NEGATIVE); NITRITE,URINE NEGATIVE (NEGATIVE); OCCULT BLOOD,URINE TRACE-INTA (NEGATIVE); PROTEIN,URINE NEGATIVE (NEGATIVE); UROBILINOGEN,URINE 0.2 (NORMAL) E.U./dL (NORMAL)
[2018-03-01 13:51] LABS: BASOPHILS # (AUTO) 0.1 10^3/uL (0.0-0.1); BASOPHILS % (AUTO) 0.4 %; EOSINOPHILS # (AUTO) 0.4 10^3/uL (0.0-0.7); EOSINOPHILS % (AUTO) 3.4 %; HGB - HEMOGLOBIN 14.8 g/dL (14.0-18.0); LYMPHOCYTES # (AUTO) 4.2 10^3/uL (1.5-3.5); LYMPHOCYTES % (AUTO) 33.1 %; MEAN CORPUSCULAR HEMOGLOBIN 31.9 pg (27.0-31.0); MEAN CORPUSCULAR VOLUME 91.3 fL (80.0-94.0); MEAN PLATELET VOLUME 8.2 fL (7.4-11.4); MONOCYTES # (AUTO) 0.8 10^3/uL (0.0-1.0); MONOCYTES % (AUTO) 6.3 %; NEUTROPHILS # (AUTO) 7.2 10^3/uL (1.5-6.6); NEUTROPHILS % (AUTO) 56.8 %; PLT - PLATELET COUNT 310 10^3/uL (130-450); RED BLOOD COUNT 4.65 10^6/uL (4.70-6.10); RED CELL DISTRIBUTION WIDTH 13.1 % (12.0-15.0); WHITE BLOOD COUNT 12.7 x10^3/uL (4.8-10.8)
[2018-03-01 13:53] LABS: CLARITY,URINE CLEAR (CLEAR)
[2018-03-01] MEDS ORDERED: NICOTINE 14 MG PATCH TOP STA (14:00)
[2018-03-01] MEDS ORDERED: OLANZapine ODT 5 MG TABLET TL ONE (14:00)
[2018-03-01 14:05] LABS: AMPHETAMINE SCREEN,URINE POSITIVE (NEGATIVE); BENZODIAZEPINES SCREEN, URINE NEGATIVE (NEGATIVE); COCAINE SCREEN URINE NEGATIVE (NEGATIVE); METHADONE SCREEN, URINE NEGATIVE (NEGATIVE); METHAMPHETAMINES SCREEN, URINE NEGATIVE (NEGATIVE); OPIATE SCREEN, URINE NEGATIVE (NEGATIVE); TRICYCLIC ANTIDEPRESSANT,URINE NEGATIVE (NEGATIVE)
[2018-03-01 14:06] LABS: OXYCODONE SCREEN, URINE NEGATIVE (NEGATIVE); PROPOXYPHENE SCREEN, URINE NEGATIVE (NEGATIVE)
[2018-03-01 14:10] LABS: ALBUMIN 4.6 g/dL (3.2-5.5); ALBUMIN/GLOBULIN RATIO 1.4 (1.0-2.2); ALKALINE PHOSPHATASE 70 IU/L (42-121); ALT ALANINE AMINOTRANSFERASE 14 IU/L (10-60); AST ASPARTATE AMINOTRANSFERASE 20 IU/L (10-42); BILIRUBIN,TOTAL 0.7 mg/dL (0.2-1.0); BUN - BLOOD UREA NITROGEN 11 mg/dL (6-20); CALCIUM 9.6 mg/dL (8.5-10.3); CARBON DIOXIDE - CO2 26 mmol/L (21-32); CHLORIDE 100 mmol/L (101-111); GFR - MDRD 80 (>89); GLUCOSE 103 mg/dL (70-100); LIPASE 175 U/L (22-51); SODIUM 137 mmol/L (135-145); TOTAL PROTEIN 7.8 g/dL (6.7-8.2)
[2018-03-01 14:26] LABS: SALICYLATE < 6.0 mg/dL
[2018-03-01 14:27] LABS: ACETAMINOPHEN < 10 ug/mL (10-30)
[2018-03-01] MEDS ORDERED: LORazepam 0.5 MG TABLET PO STA (15:00)
[2018-03-01 18:41] VITALS: BP 151/120
== END 2018-03-01 18:46 | disposition home or self-care (01) ==
LOC: EDUNIT# → ED 13:34
DX: F30.8 Other manic episodes (principal); F31.0 Bipolar disorder, current episode hypomanic; F17.200 Nicotine dependence, unspecified, uncomplicated; Z91.14 Patient's other noncompliance with medication regimen
CPT/HCPCS: 36415; 80053; 80306; 80307; 80320; 80329; 81003; 83690; 84443; 85025; 99283; A9270; 81001; 87086

== ENCOUNTER 2018-03-26 17:16 | Outpatient (CLI) | payer MEDICAID | END 2018-03-26 17:17 | disposition critical access hospital (66) | LOC: EMS 17:16 | PROVIDERS: ATTEND Surgery | DX: F41.9 Anxiety disorder, unspecified (principal); R20.2 Paresthesia of skin | CPT/HCPCS: A0425; A0429; A0999 ==

== ENCOUNTER 2018-03-26 17:43 | Emergency (ER) | payer MEDICAID ==
[2018-03-26] MEDS ORDERED: OLANZapine 10 MG VIAL IM STA (17:49)
[2018-03-26] MEDS ORDERED: LORazepam 2 MG/ML VIAL IM STA (18:12)
[2018-03-26 19:17] LABS: MUDS CUTOFF CONCENTRATIONS CUTOFF CONC BELOW:
[2018-03-26 19:19] LABS: BASOPHILS # (AUTO) 0.2 10^3/uL (0.0-0.1); BASOPHILS % (AUTO) 1.3 %; EOSINOPHILS # (AUTO) 0.2 10^3/uL (0.0-0.7); EOSINOPHILS % (AUTO) 1.1 %; HGB - HEMOGLOBIN 14.3 g/dL (14.0-18.0); LYMPHOCYTES # (AUTO) 2.1 10^3/uL (1.5-3.5); LYMPHOCYTES % (AUTO) 15.9 %; MEAN CORPUSCULAR HEMOGLOBIN 31.3 pg (27.0-31.0); MEAN CORPUSCULAR HGB CONC 34.1 g/dL (32.0-36.0); MEAN CORPUSCULAR VOLUME 91.7 fL (80.0-94.0); MEAN PLATELET VOLUME 8.6 fL (7.4-11.4); MONOCYTES # (AUTO) 0.8 10^3/uL (0.0-1.0); MONOCYTES % (AUTO) 5.9 %; NEUTROPHILS # (AUTO) 10.1 10^3/uL (1.5-6.6); NEUTROPHILS % (AUTO) 75.8 %; PLT - PLATELET COUNT 248 10^3/uL (130-450); RED BLOOD COUNT 4.58 10^6/uL (4.70-6.10); RED CELL DISTRIBUTION WIDTH 13.1 % (12.0-15.0); WHITE BLOOD COUNT 13.4 x10^3/uL (4.8-10.8)
[2018-03-26 19:26] LABS: BILIRUBIN,URINE NEGATIVE (NEGATIVE); GLUCOSE, URINE (UA) NEGATIVE (NEGATIVE); KETONES,URINE (UA) NEGATIVE (NEGATIVE); LEUKOCYTE ESTERASE, URINE NEGATIVE (NEGATIVE); NITRITE,URINE NEGATIVE (NEGATIVE); OCCULT BLOOD,URINE NEGATIVE (NEGATIVE); PROTEIN,URINE TRACE mg/dL (NEGATIVE); UROBILINOGEN,URINE 0.2 (NORMAL) E.U./dL (NORMAL)
[2018-03-26 19:30] LABS: ALBUMIN 4.1 g/dL (3.2-5.5); ALBUMIN/GLOBULIN RATIO 1.5 (1.0-2.2); ALKALINE PHOSPHATASE 73 IU/L (42-121); ALT ALANINE AMINOTRANSFERASE 11 IU/L (10-60); AST ASPARTATE AMINOTRANSFERASE 20 IU/L (10-42); BILIRUBIN,TOTAL 0.8 mg/dL (0.2-1.0); BUN - BLOOD UREA NITROGEN 11 mg/dL (6-20); CALCIUM 9.2 mg/dL (8.5-10.3); CARBON DIOXIDE - CO2 26 mmol/L (21-32); CHLORIDE 104 mmol/L (101-111); CREATININE 0.9 mg/dL (0.6-1.2); GFR - MDRD 90 (>89); GLUCOSE 107 mg/dL (70-100); LIPASE 29 U/L (22-51); SALICYLATE < 6.0 mg/dL; SODIUM 136 mmol/L (135-145); TOTAL PROTEIN 6.8 g/dL (6.7-8.2)
[2018-03-26 19:41] LABS: CLARITY,URINE CLEAR (CLEAR)
[2018-03-26 19:42] LABS: AMPHETAMINE SCREEN,URINE POSITIVE (NEGATIVE); BENZODIAZEPINES SCREEN, URINE NEGATIVE (NEGATIVE); COCAINE SCREEN URINE NEGATIVE (NEGATIVE); METHADONE SCREEN, URINE NEGATIVE (NEGATIVE); METHAMPHETAMINES SCREEN, URINE POSITIVE (NEGATIVE); OPIATE SCREEN, URINE NEGATIVE (NEGATIVE); OXYCODONE SCREEN, URINE NEGATIVE (NEGATIVE); PROPOXYPHENE SCREEN, URINE NEGATIVE (NEGATIVE); TRICYCLIC ANTIDEPRESSANT,URINE NEGATIVE (NEGATIVE)
--- NOTE | 2018-03-26 20:54 | ED Physician Documentation ---
PD HPI MHE - Stated complaint Stated Complaint: MHE - Chief complaint Chief Complaint: MHE - History obtained from History obtained from: EMS - History of Present Illness Primary symptom: Psychosis Timing - onset: Today Pain level max: 0 Pain level now: 0 Contributing factors: Substance abuse - drugs (methamphetamines and marijuana) Recently seen: Not recently seen - Additional information Additional information: Patient is uncooperative. Screaming and yelling in the ED. Does admit to using meth and marijuana today. Review of Systems Unable to obtain: Uncooperative PD PAST MEDICAL HISTORY - Past Medical History Past Medical History: Yes Cardiovascular: None Respiratory: None Endocrine/Autoimmune: None GI: None : Other HEENT: None Psych: Anxiety, Bipolar disorder, Schizophrenia Musculoskeletal: None, Gout Derm: None - Past Surgical History Past Surgical History: Yes HEENT: Tonsil/Adenoidectomy - Present Medications Home Medications: Ambulatory Orders Medication Instructions Recorded Confirmed Lorazepam [Ativan] 1 mg PO BID #12 tablet 03/01/18 OLANZapine [Zyprexa] 5 mg PO BID #40 tablet 03/01/18 buPROPion [Wellbutrin Sr] 100 mg PO BID #40 tablet 03/01/18 - Allergies Allergies/Adverse Reactions: Allergies Allergy/AdvReac Type Severity Reaction Status Date / Time amoxicillin Allergy Rash Verified 02/21/18 14:21 Penicillins Allergy Rash Verified 02/21/18 14:21 sulfamethoxazole Allergy Edema Verified 02/21/18 14:21 [From Bactrim] trimethoprim [From Bactrim] Allergy Edema Verified 02/21/18 14:21 - Social History Does the pt smoke?: Yes Smoking Status: Current every day smoker Does the pt drink ETOH?: No Does the pt have substance abuse?: No - Immunizations Immunizations are current?: Yes - POLST Patient has POLST: No PD ED PE NORMAL - Vitals Vital signs reviewed: Yes - General General: Other (angry, yelling) - HEENT HEENT: Moist mucous membranes - Neck Neck: Supple, no meningeal sign - Cardiac Cardiac: RRR - Respiratory Respiratory: No respiratory distress, Clear bilaterally - Abdomen Abdomen: Soft, Non tender, Non distended - Back Back: No spinal TTP - Derm Derm: Warm and dry - Extremities Extremities: Normal ROM s pain, No edema - Neuro Neuro: Other (alert, uncooperative) Results - Vitals Vitals: Vital Signs - 24 hr 03/26/18 17:57 Temperature 37.1 C Heart Rate 110 H Respiratory 20 Rate Blood Pressure 161/113 H O2 Saturation 100 Oxygen O2 Source Room air - Labs Labs: Laboratory Tests 03/26/18 03/26/18 03/26/18 18:00 19:00 19:00 WBC 13.4 H RBC 4.58 L Hgb 14.3 Hct 42.0 MCV 91.7 MCH 31.3 H MCHC 34.1 RDW 13.1 Plt Count 248 MPV 8.6 Neut # (Auto) 10.1 H Lymph # (Auto) 2.1 [place] # (Auto) 0.8 Eos # (Auto) 0.2 Baso # (Auto) 0.2 H Absolute Nucleated RBC 0.00 Nucleated RBC % 0.0 Sodium 136 Potassium 3.4 L Chloride 104 Carbon Dioxide 26 Anion Gap 6.0 BUN 11 Creatinine 0.9 Estimated GFR (MDRD) 90 Glucose 107 H Calcium 9.2 Total Bilirubin 0.8 AST 20 ALT 11 Alkaline Phosphatase 73 Total Protein 6.8 Albumin 4.1 Globulin 2.7 Albumin/Globulin Ratio 1.5 Lipase 29 TSH Urine Color YELLOW Urine Clarity CLEAR Urine pH 6.0 Ur Specific [place] 1.010 Urine Protein TRACE Urine Glucose (UA) NEGATIVE Urine Ketones NEGATIVE Urine Occult Blood NEGATIVE Urine Nitrite NEGATIVE Urine Bilirubin NEGATIVE Urine Urobilinogen 0.2 (NORMAL) Ur Leukocyte Esterase NEGATIVE Ur Microscopic Review NOT INDICATED Urine Culture Comments NOT INDICATED Salicylates < 6.0 Urine Opiates Screen NEGATIVE Ur Oxycodone Screen NEGATIVE Urine Methadone Screen NEGATIVE Ur Propoxyphene Screen NEGATIVE Ur Barbiturates Screen NEGATIVE Ur Tricyclics Screen NEGATIVE Ur Phencyclidine Scrn NEGATIVE Ur Amphetamine Screen POSITIVE H U Methamphetamines Scrn POSITIVE H U Benzodiazepines Scrn NEGATIVE Urine Cocaine Screen NEGATIVE U Cannabinoids Screen POSITIVE H 03/26/18 19:00 WBC RBC Hgb Hct MCV MCH MCHC RDW Plt Count MPV Neut # (Auto) Lymph # (Auto) [place] # (Auto) Eos # (Auto) Baso # (Auto) Absolute Nucleated RBC Nucleated RBC % Sodium Potassium Chloride Carbon Dioxide Anion Gap BUN Creatinine Estimated GFR (MDRD) Glucose Calcium Total Bilirubin AST ALT Alkaline Phosphatase Total Protein Albumin Globulin Albumin/Globulin Ratio Lipase TSH 0.76 Urine Color Urine Clarity Urine pH Ur Specific [place] Urine Protein Urine Glucose (UA) Urine Ketones Urine Occult Blood Urine Nitrite Urine Bilirubin Urine Urobilinogen Ur Leukocyte Esterase Ur Microscopic Review Urine Culture Comments Salicylates Urine Opiates Screen Ur Oxycodone Screen Urine Methadone Screen Ur Propoxyphene Screen Ur Barbiturates Screen Ur Tricyclics Screen Ur Phencyclidine Scrn Ur Amphetamine Screen U Methamphetamines Scrn U Benzodiazepines Scrn Urine Cocaine Screen U Cannabinoids Screen PD MEDICAL DECISION MAKING - ED course Complexity details: reviewed old records, reviewed results, considered differential ED course: Patient is a 48-year-old male who is acutely altered secondary to marijuana and methamphetamine use. He was treated with Zyprexa and Ativan and slept in the emergency department. No acute laboratory findings that are concerning at this point. We will reevaluate the patient when he awakens. Patient was signed out to the oncoming ED physician. This document was made in part using voice recognition software. While efforts are made to proofread this document, sound alike and grammatical errors may occur. - Sepsis Event Vital Signs: Vital Signs - 24 hr 03/26/18 17:57 Temperature 37.1 C Heart Rate 110 H Respiratory 20 Rate Blood Pressure 161/113 H O2 Saturation 100 Oxygen O2 Source Room air Departure - Departure Clinical Impression: Methamphetamine intoxication Condition: Stable
[2018-03-26 20:56] LABS: ACETAMINOPHEN < 10 ug/mL (10-30)
--- NOTE | 2018-03-27 05:34 | ED Physician Documentation ---
ED Addendum - Addendum Addendum: 03/27/18 05:32 Patient was signed over to me from Dr. Grover. Patient was pending sobriety and re-evaluation. Patient was monitored overnight without and difficulties. In the morning patient was evaluated. patient was awake, alert and oriented. patient was calm and cooperative. patient was able to attend to conversation and ambulate without difficulty. patient required no further inpatient work up at this time and was stable for discharge with outpatient follow up. Departure - Departure Disposition: 01 Home, Self Care Discharge Problem: Methamphetamine intoxication Condition: Stable Instructions: Abuse Meth Abuse and Addiction Comments: Your symptoms were secondary to your methamphetamine abuse. You should refrain from using as the side effects are not only harmful to you, but harmful to others.
[2018-03-27 05:41] VITALS: BP 127/81
== END 2018-03-27 05:45 | disposition home or self-care (01) ==
LOC: EDUNIT# → ED 17:43
DX: F15.129 Other stimulant abuse with intoxication, unspecified (principal); F12.90 Cannabis use, unspecified, uncomplicated; F20.9 Schizophrenia, unspecified; F31.9 Bipolar disorder, unspecified; F41.9 Anxiety disorder, unspecified; F17.200 Nicotine dependence, unspecified, uncomplicated
CPT/HCPCS: 36415; 80053; 80306; 80307; 80320; 80329; 81003; 83690; 84443; 85025; 96372; 99284; J2060; 81001; 87086

== ENCOUNTER 2018-05-02 10:11 | Emergency (ER) | payer MEDICAID ==
--- NOTE | 2018-05-02 11:51 | XRAY Report ---
Reason: pain Procedure Date: 05/02/2018 Accession Number: [id number] / [id number] Procedure: XR - Ankle 3 View LT CPT Code: FULL RESULT: EXAM: LEFT ANKLE RADIOGRAPHY EXAM DATE: 05/02/2018 11:12 AM. CLINICAL HISTORY: Pain. COMPARISON: None. TECHNIQUE: 3 views. FINDINGS: Bones: There is a well-corticated 2 mm osseous body adjacent to the medial talus which may be sequela of prior medial process of talar fracture. No acute fracture appreciated. Joints: Normal. No effusion. No subluxations. The ankle mortise is normally aligned. Soft Tissues: Normal. No soft tissue swelling. IMPRESSION: No acute fracture. Question sequela of prior fracture to the medial process of the talus. RADIA
[2018-05-02] MEDS ORDERED: MELOXICAM 7.5 MG TABLET PO STA (13:00)
[2018-05-02] MEDS ORDERED: predniSONE 20 MG TABLET PO STA (13:01)
[2018-05-02] MEDS ORDERED: COLCHICINE 0.6 MG TABLET PO STA (13:01)
--- NOTE | 2018-05-02 13:02 | ED Physician Documentation ---
History of Present Illness - Stated complaint Stated Complaint: L ANKLE PAIN/ NON INJURY - Chief complaint Chief Complaint: General - History obtained from History obtained from: Patient - History of Present Illness Timing: How many days ago (several) Pain level max: 8 Pain level now: 8 - Additonal information Additional information: Left foot pain for the past several days. Similar to prior history of gout. No fevers. No trauma. No falls. Has not taken anything for the pain. Better with rest and worse with walking Review of Systems Constitutional: denies: Fever, Chills GI: denies: Vomiting Skin: denies: Rash PD PAST MEDICAL HISTORY - Past Medical History Cardiovascular: None Respiratory: None Endocrine/Autoimmune: None GI: None : Other HEENT: None Psych: Anxiety, Bipolar disorder, Schizophrenia Musculoskeletal: None, Gout Derm: None - Past Surgical History Past Surgical History: Yes HEENT: Tonsil/Adenoidectomy - Present Medications Home Medications: Ambulatory Orders Medication Instructions Recorded Confirmed Hydrocodone/Acetaminophen 1 - 2 each PO Q6H PRN #5 tablet 05/02/18 [Hydrocodon-Acetaminophen 5-325] Meloxicam [Mobic] 15 mg PO DAILY PRN #20 tablet 05/02/18 predniSONE [Prednisone] 40 mg PO DAILY #6 tablet 05/02/18 - Allergies Allergies/Adverse Reactions: Allergies Allergy/AdvReac Type Severity Reaction Status Date / Time amoxicillin Allergy Rash Verified 05/02/18 10:38 Penicillins Allergy Rash Verified 05/02/18 10:38 sulfamethoxazole Allergy Edema Verified 05/02/18 10:38 [From Bactrim] trimethoprim [From Bactrim] Allergy Edema Verified 05/02/18 10:38 - Social History Does the pt smoke?: Yes Smoking Status: Current every day smoker Does the pt drink ETOH?: No Does the pt have substance abuse?: No - Immunizations Immunizations are current?: Yes - POLST Patient has POLST: No PD ED PE NORMAL - Vitals Vital signs reviewed: Yes - General General: Alert and oriented X 3, No acute distress - HEENT HEENT: Moist mucous membranes - Cardiac Cardiac: RRR - Respiratory Respiratory: No respiratory distress, Clear bilaterally - Derm Derm: Warm and dry - Extremities Extremities: Other (L foot - redness and swelling to the L 1st MTP joint. ) - Neuro Neuro: Alert and oriented X 3 Results - Vitals Vitals: Vital Signs - 24 hr 05/02/18 10:34 Temperature 36.3 C L Heart Rate 108 H Respiratory 25 H Rate Blood Pressure 152/83 H O2 Saturation 100 Oxygen O2 Source Room air PD MEDICAL DECISION MAKING - ED course Complexity details: considered differential, d/w patient ED course: 48-year-old male with what appears to be an acute gout flare of the left first MTP joint. Will place on steroids and anti-inflammatories for home. Given colchicine here as well. Also placed in a postoperative shoe for comfort. Patient counseled regarding signs and symptoms for which I believe and urgent re-evaluation would be necessary. Patient with good understanding of and agreement to plan and is comfortable going home at this time This document was made in part using voice recognition software. While efforts are made to proofread this document, sound alike and grammatical errors may occur. No evidence of septic joint Departure - Departure Disposition: 01 Home, Self Care Clinical Impression: Gout Qualifiers: Gout site: foot Gout etiology: unspecified cause Chronicity: acute Laterality: left Qualified Code(s): M10.9 - Gout, unspecified Condition: Good Instructions: ED Arthritis Gout Follow-Up: your,doctor in 1 week [Other] Prescriptions: Hydrocodone/Acetaminophen [Hydrocodon-Acetaminophen 5-325] 1 - 2 each PO Q6H PRN #5 tablet PRN Reason: pain Meloxicam [Mobic] 15 mg PO DAILY PRN #20 tablet PRN Reason: pain predniSONE [Prednisone] 40 mg PO DAILY #6 tablet Comments: Take medications as prescribed. Return if you worsen. You should drink plenty of water. You should also follow a low protein diet. Do not drink alcohol or drive while on narcotic pain medicine. Note that many narcotic pain relievers also contain tylenol/acetaminophen. P lease ensure that your total dose of acetaminophen from all sources does not exceed 3 grams (3000mg) per day. You may constipated on this medication, take a stool softener such as "Colace" twice a day while you are on it. Also recommend a [id number] laxative such as senna or MiraLAX any day that you do not have a bowel movement. If you received narcotic pain medication in the emergency department, do not drive or operate machinery for the next 24 hours.
[2018-05-02 13:35] VITALS: BP 148/82
== END 2018-05-02 13:34 | disposition home or self-care (01) ==
LOC: ED 10:11
DX: M10.9 Gout, unspecified (principal); F17.200 Nicotine dependence, unspecified, uncomplicated
CPT/HCPCS: 73610; 99283; A9270; J7512